=== PATIENT | male | born 1945 | race Caucasian/White ===

== ENCOUNTER 2018-03-20 09:22 | Observation (INO) | payer BC, OTHER ==
[2018-03-20 10:28] VITALS: BMI 28.4
[2018-03-20] MEDS: NA CHLORIDE 0.9% 1,000 ML IV SCH ×2 (11:30→20:19)
[2018-03-20 11:32] LABS: Potassium 4.1 mEq/L (3.6-5.0)
[2018-03-20 11:36] LABS: Albumin 4.5 g/dL (3.2-5.5); Protein, Total 7.7 g/dL (6.0-8.3)
--- NOTE | 2018-03-21 04:01 | CON ---
Date of Consultation: 03/20/2018 Consulting Physician: Dr. Gracia. Reason For Consultation: Elevated BUN and creatinine, fluid management, hypertension. History Of Present Illness: This is a pleasant 72-year-old gentleman with significant past medical h istory of hypertension, for the last 20 years, hyperlipidemia. The patient was in his regular state of health. According to the patient, the patient is known to have chronic kidney disease. Creatinin e last year around 2. The patient intentionally start losing weight the last few months lost almost 20 pounds. The patient repeated lab with Dr. Lozano show creatinine 2.5 with decreased GFR for that re ason, send for direct admission. Reviewing the record for the patient, the patient apparently being on JUAN inhibitor. The patient denied taking any nonsteroidal. No recent exposure to IV contrast. N o antibiotic. The patient has hesitancy but denies any nocturia, deny any leg swelling. Past Medical History: Include: 1.Hypertension. 2.Chronic kidney disease, stage 3B, baseline creatinine of 2. 3.Hyperlipidemia. Allergies: NO KNOWN DRUG ALLERGIES. Social History: Denied alcohol. Denied drug abuse. Family History: Positive for hypertension. Surgical History: Noncontributory. Review of Systems: Head and Neck: No red eye. No ear pain. GI: Decreased intake. : No polyuria. No dysuria. No hematuria. Has hesitancy. Dental Floss Packer: Not applicable. Respiratory: No shortness of breath. Cardiovascular: No chest pain. Neuro: No weakness. Musculoskeletal: Generalized fatigue. Endocrine: No polydipsia. Skin: No rash. Physical Examination: Vital Signs: When I saw the patient, blood pressure of 138/88, pulse of 88. Chest: Clear to auscultation. Heart: S1, S2. Regular. Abdomen: Soft, nontender. Extremities: No edema. Vascular exam: No carotid bruit. No renal bruit. The patient is obese. Neuro: Alert and oriented x3. No focal. No tremor. Laboratory Data: Has a lab data that was brought with the patient, creatinine 2.5, GFR down to 24. Assessment And Plan: 1.Acute kidney injury secondary to prerenal, superimposed with JUAN inhibitor use. 2.I will hold UJAN inhibitor, start the patient on aggressive hydration, and we will send for the wor kup. Given the chronicity of the disease, I am going to go ahead and send for PTH and vitamin D and renal ultrasound to stage chronic kidney disease, and we will follow up. 3.Hypertension. On the presence of acute kidney injury, we will hold on the JUAN inhibitor for the t pema being. Case discussed with the patient, verbalized understanding. PAMELA Voice ID: [id number] Report ID: [id number]
[2018-03-21] MEDS: NA CHLORIDE 0.9% 1,000 ML IV SCH (04:06)
[2018-03-21 06:53] LABS: Potassium 3.8 mEq/L (3.6-5.0)
[2018-03-21 08:58] VITALS: O2SAT 99
[2018-03-21 09:54] VITALS: BP 115/78; TEMP 97
--- NOTE | 2018-03-21 21:04 | HP ---
Date of Admission: 03/20/2018 Chief Complaint: Abnormal renal function. History Of Present Illness: A 72-year-old male, decided to lose weight and lost over 15-20 pounds an d was brought for regular visit when he was found to have low blood pressure. The patient claims jackelyn t he deliberately tried to eat less, drink less fluids to lose weight. The patient was asked not to take whole dose of amlodipine. Blood work was done. This showed elevation of creatinine to 2.5. He came on the following day. His blood pressure was 100 systolic and at this point in view of worseni ng of his kidney function the patient was admitted for administration of IV fluids and monitoring of renal function. Past Medical History: Positive for hypertension, gastroesophageal reflux. Family History: present. Personal History: No known allergies. Home Medicines: Benicar with hydrochlorothiazide, metoprolol, amlodipine. Review of Systems: No chest pain or shortness of breath. Physical Examination: General: Revealed a 72-year-old male. Vital signs: Blood pressure in the office was 100/70, temperature normal. HEENT: Negative. Neck: Supple. JVD negative. Chest: Clear. Heart: Regular. Abdomen: Soft. Extremities: No edema. Laboratory Data: In the office, creatinine was 2.5. Repeat creatinine 2.1. Today the creatinine is 1.8. Assessment: 1.Probable renal hypoperfusion causing worsening of kidney function. 2.Hypertension. Plan: The patient will be discharged on no blood pressure medication. He will be checked in the off ice tomorrow and his blood pressure medications will be rearranged. GAYATRI/REUBEN Voice ID: [id number]
== END 2018-03-21 10:38 | disposition home or self-care (01) ==
LOC: 4TH 10:05
PROVIDERS: ADMIT Internal Medicine; ATTEND Internal Medicine
DX: N17.9 Acute kidney failure, unspecified (principal); I12.9 Hypertensive chronic kidney disease with stage 1 through stage 4 chronic kidney disease, or unspecified chronic kidney disease; N18.3 Chronic kidney disease, stage 3 (moderate); E86.0 Dehydration; K21.9 Gastro-esophageal reflux disease without esophagitis
CPT/HCPCS: 36415; 80048; 80053; G0378; J7030

== ENCOUNTER 2020-08-19 17:32 | Inpatient (IN) | payer BC, OTHER ==
[2020-08-19] MEDS ORDERED: METOPROLOL TARTRATE 5 MG/5 ML INJ IV ONE ×2 (19:41→23:13)
[2020-08-19] MEDS ORDERED: NA CHLORIDE 0.9% 1,000 ML ONE ×2 (19:41→21:08)
[2020-08-19 19:46] LABS: Absolute Lymphocytes (CBC) 0.4 K/uL (0.7-4.9); Basophils % 0.1 % (0-1.3); Hematocrit 40.9 % (39.6-49.0); Lymphocytes % 3.8 % (15.3-44.8); MPV 9.9 fL (7.6-11.3); RBC Red Blood Cell Count 4.59 M/uL (4.33-5.43)
[2020-08-19 19:48] LABS: Protime INR 2.05
[2020-08-19 20:06] LABS: Albumin 3.2 g/dL (3.4-5.0); Bilirubin Direct 0.9 mg/dL (0-0.2); Bilirubin Total 2.1 mg/dL (0.2-1.0); Magnesium 1.7 mg/dL (1.8-2.4); Potassium 3.1 mmol/L (3.5-5.1); Protein, Total 7.6 g/dL (6.4-8.2); Troponin (Emerg Dept Use Only) 0.05 ng/mL (0.0-0.045)
--- NOTE | 2020-08-19 20:53 | EDPHYS ---
Physician Documentation [facility] Name: Alejandro Ackerman Age: 75 yrs Sex: Male : 1945 Arrival Date: 08/19/2020 Time: 17:33 Bed 30 Private MD: Yovani Mann R ED Physician Dontae Baker HPI: 08/19 20:41 This 75 yrs old Male presents to ER via Ambulatory with complaints of COVID+, jr8 Breathing Difficulty. 20:41 The patient has shortness of breath at rest. Onset: The symptoms/episode began/occurred jr8 gradually, 1 week(s) ago. Duration: The symptoms are continuous, and are steadily getting worse. The patient's shortness of breath is aggravated by light activity, walking. Associated signs and symptoms: Pertinent positives: fever. Severity of symptoms: At their worst the symptoms were moderate in the emergency department the symptoms are unchanged. The patient has not experienced similar symptoms in the past. The patient has been recently seen by a physician: the patient's primary care provider. Historical: - Allergies: 17:50 No Known Allergies; ll1 - PMHx: 17:50 Hypertension; A fib; ll1 - PSHx: 17:50 Left leg FX, ankle dislocation; back surgery; arm surgery-muscle repair; ll1 - Immunization history:: Flu vaccine is not up to date. - Social history:: Smoking status: Patient denies any tobacco usage or history of. ROS: 20:41 Eyes: Negative for injury, pain, redness, and discharge, ENT: Negative for injury, jr8 pain, and discharge, Neck: Negative for injury, pain, and swelling, Cardiovascular: Negative for chest pain, palpitations, and edema, Abdomen/GI: Negative for abdominal pain, nausea, vomiting, diarrhea, and constipation, Back: Negative for injury and pain, MS/Extremity: Negative for injury and deformity, Skin: Negative for injury, rash, and discoloration, Neuro: Negative for headache, weakness, numbness, tingling, and seizure. 20:41 Constitutional: Positive for fever, malaise. 20:41 Respiratory: Positive for dyspnea on exertion, shortness of breath. Exam: 20:41 Eyes: Pupils equal round and reactive to light, extra-ocular motions intact. Lids and jr8 lashes normal. Conjunctiva and sclera are non-icteric and not injected. Cornea within normal limits. Periorbital areas with no swelling, redness, or edema. ENT: Nares patent. No nasal discharge, no septal abnormalities noted. Tympanic membranes are normal and external auditory canals are clear. Oropharynx with no redness, swelling, or masses, exudates, or evidence of obstruction, uvula midline. Mucous membranes moist. Neck: Trachea midline, no thyromegaly or masses palpated, and no cervical lymphadenopathy. Supple, full range of motion without nuchal rigidity, or vertebral point tenderness. No Meningismus. Abdomen/GI: Soft, non-tender, with normal bowel sounds. No distension or tympany. No guarding or rebound. No evidence of tenderness throughout. Back: No spinal tenderness. No costovertebral tenderness. Full range of motion. Skin: Warm, dry with normal turgor. Normal color with no rashes, no lesions, and no evidence of cellulitis. MS/ Extremity: Pulses equal, no cyanosis. Neurovascular intact. Full, normal range of motion. Neuro: Awake and alert, GCS 15, oriented to person, place, time, and situation. Cranial nerves II-XII grossly intact. Motor strength 5/5 in all extremities. Sensory grossly intact. Cerebellar exam normal. Normal gait. 20:41 Cardiovascular: Rate: tachycardic, Rhythm: irregularly irregular, Pulses: Pulses are 2+ in right radial artery and left radial artery. Heart sounds: normal, normal S1and S2, Edema: is not appreciated, JVD: is not appreciated. 20:41 Respiratory: mild respiratory distress is noted, Respirations: tachypnea, Breath sounds: are clear throughout. Vital Signs: 17:46 BP 131 / 85; Pulse 71; Resp 20; Temp 97.8; Pulse Ox 96% on R/A; Weight 90.72 kg; Height ll1 5 ft. 10 in. (177.80 cm); Pain 10/10; 21:42 BP 110 / 100; Pulse 119; Resp 30; Pulse Ox 92% on NC; ea 22:59 BP 132 / 94; Pulse 105; Resp 30; Pulse Ox 94% ; ea 17:46 Body Mass Index 28.70 (90.72 kg, 177.80 cm) 1 MDM: 18:28 Patient medically screened. jr8 20:41 Data reviewed: vital signs, nurses notes, lab test result(s), EKG, radiologic studies, [facility] plain films. Data interpreted: Pulse oximetry: on room air is 96 %. Interpretation: normal. Counseling: I had a detailed discussion with the patient and/or guardian regarding: the historical points, exam findings, and any diagnostic results supporting the discharge/admit diagnosis, lab results, radiology results, the need for further work-up and treatment in the hospital. 08/19 18:29 Order name: Basic Metabolic Panel; Complete Time: 20:23 8 08/19 18:29 Order name: CBC with Diff; Complete Time: 21:57 jr8 08/19 18:29 Order name: LFT's; Complete Time: 20:23 [facility] 08/19 18:29 Order name: Magnesium; Complete Time: 20:23 8 08/19 18:29 Order name: NT PRO-BNP; Complete Time: 20:23 8 08/19 18:29 Order name: PT-INR; Complete Time: 20:23 [facility] 08/19 18:29 Order name: Troponin (emerg Dept Use Only); Complete Time: 20:23 [facility] 08/19 18:29 Order name: CRP; Complete Time: 20:23 [facility] 08/19 18:30 Order name: Fibrinogen; Complete Time: 22:47 [facility] 08/19 19:22 Order name: DD ds4 08/19 19:26 Order name: Blood Culture Adult (2) 08/19 19:26 Order name: Lactate; Complete Time: 20:38 08/19 19:26 Order name: Procalcitonin; Complete Time: 20:38 08/19 19:27 Order name: Blood Culture [facility] 08/19 18:29 Order name: XRAY Chest (1 view); Complete Time: 00:29 [facility] 08/19 19:55 Order name: CBC Smear Scan; Complete Time: 21:57 [facility] 08/19 23:33 Order name: Lactate Sepsis 2 HR Follow-up; Complete Time: 23:39 [facility] 08/20 05:17 Order name: CBC with Automated Diff [facility] 08/20 05:41 Order name: Renal Panel [facility] 08/20 05:41 Order name: Uric Acid [facility] 08/20 05:41 Order name: Creatine Phosphokinase [facility] 08/20 05:41 Order name: C-Reactive Protein [facility] 08/20 05:41 Order name: T4 Free [facility] 08/20 05:41 Order name: Magnesium [facility] 08/20 05:41 Order name: Thyroid Stimulating Hormone [facility] 08/20 06:02 Order name: PTH Intact [facility] 08/19 18:29 Order name: EKG; Complete Time: 18:30 8 08/19 18:29 Order name: Cardiac monitoring; Complete Time: 19:23 8 08/19 18:29 Order name: EKG - Nurse/Tech; Complete Time: 19:23 8 08/19 18:29 Order name: IV Saline Lock; Complete Time: 19:23 8 08/19 18:29 Order name: Labs collected and sent; Complete Time: 19:23 8 08/19 18:29 Order name: O2 Per Protocol; Complete Time: 19:23 8 08/19 18:29 Order name: O2 Sat Monitoring; Complete Time: 19:23 Administered Medications: 19:50 Drug: Metoprolol 5 mg Route: IVP; Site: left antecubital; ll2 19:51 Drug: NS 0.9% 1000 ml Route: IV; Rate: 1000 ml; Site: left antecubital; ll2 21:15 Follow up: Response: No adverse reaction; IV Status: Completed infusion ll2 19:55 Drug: Metoprolol 5 mg Route: IVP; Site: right antecubital; ll2 20:00 Drug: Metoprolol 5 mg Route: IVP; Site: right antecubital; ll2 21:15 Follow up: Response: No adverse reaction ll2 20:52 CANCELLED (Physician Discretion): Lovenox 1 mg/kg Sub-Q once 8 21:03 Drug: Decadron - Dexamethasone 10 mg Route: IVP; Site: right antecubital; ll2 21:12 Follow up: Response: No adverse reaction ll2 21:03 Drug: Potassium Chloride 40 mEq Route: PO; ll2 21:12 Follow up: Response: No adverse reaction ll2 21:04 Drug: NS 0.9% 1000 ml Route: IV; Rate: 100 ml/hr; Site: right antecubital; ll2 21:15 Follow up: Response: No adverse reaction; IV Status: Completed infusion ll2 21:33 Drug: Metoprolol TARTRATE (Lopressor) 50 mg Route: PO; ll2 22:57 Follow up: Response: No adverse reaction ll2 21:34 Drug: Rocephin 1 grams Route: IV; Rate: calculated rate; Site: right antecubital; ll2 22:57 Follow up: Response: No adverse reaction rv 22:57 Follow up: IV Status: Completed infusion rv 22:57 Follow up: Response: No adverse reaction; IV Status: Completed infusion ll2 21:34 Drug: Zithromax 500 mg Route: IVPB; Infused Over: 1 hrs; Site: right antecubital; ll2 22:58 Follow up: Response: No adverse reaction; IV Status: Completed infusion ll2 23:10 Drug: Metoprolol 5 mg Route: IVP; Site: right antecubital; ll2 23:11 Follow up: Response: No adverse reaction ll2 Disposition: 08/20 09:04 Co-signature as Attending Physician, Dontae Baker MD I agree with the assessment and kdr plan of care. Disposition: 08/19/20 20:52 Hospitalization ordered by Trey Calles for Inpatient Admission. Preliminary diagnosis are SARS-associated coronavirus as the cause of diseases classified elsewhere, Acute kidney failure. - Bed requested for Intensive Care Unit. - Status is Inpatient Admission. aa5 - Condition is Fair. - Problem is new. - Symptoms are unchanged. Signatures: Dispatcher [employer] EDMS Dontae Baker MD MD [facility] Sonia Dove RN RN aa5 Dontae Cooper PA PA jr8 Radha Bateman RN RN Tracie Bermeo RN RN ll2 Lynnette Ramírez RN RN ll1 Rashawn Corey RN rv Corrections: (The following items were deleted from the chart) 08/19 20:52 20:39 Lovenox 1 mg/kg Sub-Q once ordered. jr8 jr8 22:05 20:52 Hospitalization Ordered by Trey Calles DO for Inpatient Admission. Preliminary cg diagnosis is SARS-associated coronavirus as the cause of diseases classified elsewhere; Acute kidney failure. Bed requested for Telemetry/MedSurg (Inpatient). Status is Inpatient Admission. Condition is Fair. Problem is new. Symptoms are unchanged. jr8 08/20 05:59 08/19 22:05 08/19/2020 20:52 Hospitalization Ordered by Trey Calles DO for Inpatient cg Admission. Preliminary diagnosis is SARS-associated coronavirus as the cause of diseases classified elsewhere; Acute kidney failure. Bed requested for [facility] ER HOLD. Status is Inpatient Admission. Condition is Fair. Problem is new. Symptoms are unchanged. 08/20 07:45 05:59 08/19/2020 20:52 Hospitalization Ordered by Trey Calles DO for Inpatient aa5 Admission. Preliminary diagnosis is SARS-associated coronavirus as the cause of diseases classified elsewhere; Acute kidney failure. Bed requested for Intensive Care Unit. Status is Inpatient Admission. Condition is Fair. Problem is new. Symptoms are unchanged. cg
--- NOTE | 2020-08-19 20:53 | ER ---
Nurse's Notes [facility] Name: Alejandro Ackerman Age: 75 yrs Sex: Male : 1945 Arrival Date: 08/19/2020 Time: 17:33 Bed 30 Private MD: Yovani Mann R Diagnosis: SARS-associated coronavirus as the cause of diseases classified elsewhere;Acute kidney failure Presentation: 08/19 17:46 Chief complaint:. iw 17:46 Chief complaint: Patient states: SOB, fatigue, no appetite for 5 days. Fever 102.6 at ll1 home. No N/V/D. Coronavirus screen: Client denies travel out of the [place] in the last 14 days. congestion, cough unrelated to allergies, difficulty breathing, fatigue, fever, headache, Client presents with at least one sign or symptom that may indicate coronavirus-19. Standard/surgical mask placed on the client. Client reports previous positive COVID test result. Ebola Screen: Patient denies travel to an Ebola-affected area in the 21 days before illness onset. Initial Sepsis Screen: Does the patient meet any 2 criteria? No. Patient's initial sepsis screen is negative. Risk Assessment: Do you want to hurt yourself or someone else? Patient reports no desire to harm self or others. Onset of symptoms was August 14, 2020. 17:46 Method Of Arrival: Ambulatory [facility] 17:46 Acuity: VIVIENNE 3 1 08/20 00:54 Initial Sepsis Screen: Does the patient have a suspected source of infection? Yes: rv Productive cough/pneumonia. Triage Assessment: 00:55 General: Appears uncomfortable, Behavior is calm, cooperative. Respiratory: Reports rv shortness of breath on exertion Onset: The symptoms/episode began/occurred gradually, the patient has moderate shortness of breath. Historical: - Allergies: 08/19 17:50 No Known Allergies; ll1 - PMHx: 17:50 Hypertension; A fib; ll1 - PSHx: 17:50 Left leg FX, ankle dislocation; back surgery; arm surgery-muscle repair; ll1 - Immunization history:: Flu vaccine is not up to date. - Social history:: Smoking status: Patient denies any tobacco usage or history of. Screenin:00 Abuse screen: Denies threats or abuse. Denies injuries from another. rv 22:00 Nutritional screening: No deficits noted. Tuberculosis screening: No symptoms or risk rv factors identified. Fall Risk None identified. Assessment: 21:43 Reassessment: Respiratory at bedside with high flow O2. ea 22:00 Respiratory: Airway is patent Respiratory effort is labored, Breath sounds are coarse rv bilaterally. 22:00 Pain: Denies pain. Cardiovascular: Rhythm is atrial fibrillation with rapid ventricular rv response. GI: No signs and/or symptoms were reported involving the gastrointestinal system. Derm: Skin is intact. 22:34 Reassessment: aided pt to and from bedside comode, pt became very winded and sob, o2 ll2 sats improved when returned to bed. 23:09 Reassessment: recollect of Lactic acid collected and sent to lab. ll2 Vital Signs: 17:46 BP 131 / 85; Pulse 71; Resp 20; Temp 97.8; Pulse Ox 96% on R/A; Weight 90.72 kg; Height ll1 5 ft. 10 in. (177.80 cm); Pain 10/10; 21:42 BP 110 / 100; Pulse 119; Resp 30; Pulse Ox 92% on NC; ea 22:59 BP 132 / 94; Pulse 105; Resp 30; Pulse Ox 94% ; ea 17:46 Body Mass Index 28.70 (90.72 kg, 177.80 cm) ll1 ED Course: 17:33 Patient arrived in ED. mr 17:34 Yovani Mann MD is Private Physician. mr 17:48 Triage completed. ll1 17:50 Arm band placed on. ll1 18:28 [facility] jr8 18:28 Dontae Baker MD is Attending Physician. jr8 19:09 XRAY Chest (1 view) In Process Unspecified. EDMS 19:20 Inserted saline lock: 20 gauge in right antecubital area, using aseptic technique. ds4 Blood collected. 19:25 Rashawn Corey, CHRISTINA is Primary Nurse. rv 20:48 Trey Calles DO is Hospitalizing Provider. jr8 22:00 Patient has correct armband on for positive identification. rv 22:00 dispatcher chief oil on. Pulse ox on. NIBP on. rv 08/20 00:55 No provider procedures requiring assistance completed. IV is patent, with fluids rv infusing freely, with good blood return, Patient admitted, IV remains in place. Administered Medications: 08/19 19:50 Drug: Metoprolol 5 mg Route: IVP; Site: left antecubital; ll2 19:51 Drug: NS 0.9% 1000 ml Route: IV; Rate: 1000 ml; Site: left antecubital; ll2 21:15 Follow up: Response: No adverse reaction; IV Status: Completed infusion ll2 19:55 Drug: Metoprolol 5 mg Route: IVP; Site: right antecubital; ll2 20:00 Drug: Metoprolol 5 mg Route: IVP; Site: right antecubital; ll2 21:15 Follow up: Response: No adverse reaction ll2 20:52 CANCELLED (Physician Discretion): Lovenox 1 mg/kg Sub-Q once jr8 21:03 Drug: Decadron - Dexamethasone 10 mg Route: IVP; Site: right antecubital; ll2 21:12 Follow up: Response: No adverse reaction ll2 21:03 Drug: Potassium Chloride 40 mEq Route: PO; ll2 21:12 Follow up: Response: No adverse reaction ll2 21:04 Drug: NS 0.9% 1000 ml Route: IV; Rate: 100 ml/hr; Site: right antecubital; ll2 21:15 Follow up: Response: No adverse reaction; IV Status: Completed infusion ll2 21:33 Drug: Metoprolol TARTRATE (Lopressor) 50 mg Route: PO; ll2 22:57 Follow up: Response: No adverse reaction ll2 21:34 Drug: Rocephin 1 grams Route: IV; Rate: calculated rate; Site: right antecubital; ll2 22:57 Follow up: Response: No adverse reaction rv 22:57 Follow up: IV Status: Completed infusion rv 22:57 Follow up: Response: No adverse reaction; IV Status: Completed infusion ll2 21:34 Drug: Zithromax 500 mg Route: IVPB; Infused Over: 1 hrs; Site: right antecubital; ll2 22:58 Follow up: Response: No adverse reaction; IV Status: Completed infusion ll2 23:10 Drug: Metoprolol 5 mg Route: IVP; Site: right antecubital; ll2 23:11 Follow up: Response: No adverse reaction ll2 Outcome: 20:52 Decision to Hospitalize by Provider. jr8 08/20 00:55 Admitted to ER Hold. Please see [facility] for further documentation. rv Condition: good Instructed on the need for admit. 07:45 Patient left the ED. aa5 Signatures: Dispatcher [employer] PRATEEKLady MeléndezGrecia, RN RN Sonia Beckwiht RN RN aa5 Dontae Cooper PA PA jr8 Asher Cortés 4 Vero Caceres RN Rashawn Og ea RN RN Tracie Flores, RN RN ll2 Lynnette Ramírez RN RN ll1
[2020-08-19] MEDS ORDERED: dexAMETHasone 4 MG/ML VIAL ONE (21:07)
[2020-08-19] MEDS ORDERED: POTASSIUM CL SA 10 MEQ TAB PO ONE (21:08)
[2020-08-19] MEDS ORDERED: AZITHROMYCIN 500 MG INJ IVPB ONE (21:23)
[2020-08-19] MEDS ORDERED: NA CHLORIDE 0.9% 250 ML ONE (21:23)
[2020-08-19] MEDS ORDERED: METOPROLOL TAR 50 MG TAB ONE (21:23)
[2020-08-19] MEDS ORDERED: CEFTRIAXONE/SWI 1gm 1 GM/10 ML SYR ONE (21:23)
[2020-08-19 21:37] LABS: Blood Morphology Comment NOT SEEN (NOT SEEN); Platelet Estimate ADEQ; White Blood Cell Scan OK (OK)
--- NOTE | 2020-08-19 22:02 | P.HP ---
Certification for Inpatient Patient admitted to: Inpatient With expected LOS: >2 Midnights Patient will require the following post-hospital care: None Practitioner: I am a practitioner with admitting privileges, knowledge of patient current condition, hospital course, and medical plan of care. Services: Services provided to patient in accordance with Admission requirements found in Title 42 Section 412.3 of the Code of Federal Regulations <Alvaro Al - Last Filed: 08/19/20 21:55> Patient admitted to: Inpatient <Trey Calles - Last Filed: 08/20/20 09:31> Patient History Date of Service: 08/19/20 Primary Care Provider: Dr. Mann, Dr. Jones Reason for admission: Acute respiratory failure, COVID History of Present Illness: 75-year-old male with history of atrial fibrillation on chronic anticoagulation therapy and hypertension presents emergency department for shortness of breath. Patient reports he is diagnosed with COVID on Sunday after experiencing shortness of breath since the end of last week. Patient reports he has been on Augmentin since Sunday. Upon presentation to the emergency department patient was tachycardic around 160 in atrial fibrillation with rapid ventricular response. Patient also tachypneic with around 44 respirations per min and mildly hypoxic around 89% on room air. Chest x-ray suspicious for bilateral pleural infiltrate. ED provider wishes to admit patient for further evaluation and management. When I saw the patient in the emergency department he was awake, alert, oriented x3, patient was tachypneic around 30 respirations per min and on room air at time evaluation around 89%. Patient a for about this time. Patient is full code and does wish to be intubated if needed. Patient be admitted for further evaluation and management. - Past Medical/Surgical History Diabetic: No -: Atrial fibrillation on chronic anticoagulation therapy -: Hypertension -: Cholecystectomy -: Left leg fracture -: Back surgery Psychosocial/ Personal History: Patient lives at home with his and is currently retired - Family History Father -: Heart disease - Social History Smoking Status: Never smoker Alcohol use: No CD- Drugs: No Caffeine use: Yes Place of Residence: Home <Alvaro Al - Last Filed: 08/19/20 21:55> Date of Service: 08/20/20 Home medications list reviewed: No - Past Medical/Surgical History -: Chronic renal disease stage III <Trey Calles Last Filed: 08/20/20 09:31> Allergies No Known Allergies Allergy (Verified 03/20/18 10:50) Home Medications: Cyclobenzaprine [Flexeril*] 10 mg PO DAILY 03/20/18 Omeprazole 20 mg PO DAILY 03/20/18 Review of Systems 10-point ROS is otherwise unremarkable General: Weakness, Malaise Respiratory: Cough, Shortness of Breath, Pleuritic Pain <Alvaro Al - Last Filed: 08/19/20 21:55> Physical Examination - Physical Exam General: Alert, In no apparent distress, Oriented x3 HEENT: Atraumatic, Normocephalic Neck: Supple Respiratory: Diminished (Bilaterally), Other (Shallow inspirations and tachypneic noted) Cardiovascular: No edema, Irregular heart rate/rhythm (AFib RVR rate 115) Capillary refill: <2 Seconds Gastrointestinal: Normal bowel sounds, No tenderness, No rebound, No guarding Musculoskeletal: No contractures, No erythema, No tenderness Integumentary: No tenderness/swelling, No erythema, No warmth Neurological: Normal speech, Normal strength at 5/5 x4 extr, Normal tone, Sensation intact - Studies Laboratory Data (last 24 hrs) 08/19/20 19:20: PT 23.9 H, INR 2.05 08/19/20 19:20: WBC 10.1, Hgb 14.5, Hct 40.9, Plt Count 167 08/19/20 19:20: Sodium 134 L, Potassium 3.1 L, BUN 24 H, Creatinine 2.25 H, Glucose 125 H, Magnesium 1.7 L, Total Bilirubin 2.1 H, AST 45 H, ALT 33, Alkaline Phosphatase 126 H <Alvaro Al - Last Filed: 08/19/20 21:55> - Studies Laboratory Data (last 24 hrs) 08/19/20 19:20: PT 23.9 H, INR 2.05 08/19/20 19:20: WBC 10.1, Hgb 14.5, Hct 40.9, Plt Count 167 08/19/20 19:20: Sodium 134 L, Potassium 3.1 L, BUN 24 H, Creatinine 2.25 H, Glucose 125 H, Magnesium 1.7 L, Total Bilirubin 2.1 H, AST 45 H, ALT 33, Alkaline Phosphatase 126 H <Trey Calles - Last Filed: 08/20/20 09:31> Assessment and Plan - Plan Assessment Acute respiratory failure with hypoxia and tachypnea secondary to COVID pneumonia Atrial fibrillation with rapid ventricular response on chronic anticoagulation therapy Acute kidney injury Hypertension Plan Acute respiratory failure with hypoxia and tachypnea secondary to COVID pneumonia: Pulmonology consult in place, continue with IV steroids, supplements, oxygen therapy. Respiratory therapy consult in place to wean oxygen. Daily room air saturations and room air saturations for home oxygen. Continue with IV antibiotics this time as pro calcitonin is elevated. Repeat daily CRP levels. Anticipate clinical improvement next 2-4 days. Continue patient's Xarelto for DVT prophylaxis. Atrial fibrillation with rapid ventricular response on chronic anticoagulation therapy: Continue Xarelto and metoprolol at this time. Patient did receive multiple doses of IV metoprolol in the emergency department to control rate which was initially around 150. Patient recently taken off of diltiazem and transition to metoprolol. Will discuss further with cardiology. Cardiology consult in place. Echocardiogram ordered. Acute kidney injury: Nephrology consult in place, continue gentle hydration at this time as patient does appear dry. Renal ultrasound, CPK, uric acid levels ordered. Hypertension: Continue metoprolol 50 mg p.o. b.i.d.. Discharge Plan: Home Plan to discharge in: Greater than 2 days - Advance Directives Does patient have a Living Will: No Does patient have a Durable POA for Healthcare: No - Code Status/Comfort Care Code Status Assessed: Yes (Patient is full code) Critical Care: No Time Spent Managing Pts Care (In Minutes): 55 <Alvaro Al - Last Filed: 08/19/20 21:55> - Plan Case reviewed in detail with nurse practitioner. Agree with current plan of care. Will adjust medication. Will review other lab. Will discuss case further with pulmonology, cardiology and nephrology. Please see progress note for details. <Trey Calles - Last Filed: 08/20/20 09:31>
[2020-08-19] MEDS: NA CHLORIDE 0.9% 1,000 ML IV SCH (23:01)
[2020-08-19] MEDS ORDERED: ACETAMINOPHEN 500 MG TAB PO PRN (23:01)
[2020-08-19] MEDS ORDERED: ONDANSETRON 4 MG/2 ML VIAL IV PRN (23:01)
--- NOTE | 2020-08-20 00:20 | RAD REPORT ---
EXAM DESCRIPTION: RAD - Chest Single View - 08/19/2020 10:23 pm CLINICAL HISTORY: DYSPNEA Chest pain. COMPARISON: Chest Pa And Lat (2 Views) dated 08/18/2020; Chest Pa And Lat (2 Views) dated 03/18/2018 FINDINGS: Portable technique limits examination quality. Interstitial lung markings are prominent bilaterally raising suspicion for interstitial pneumonitis/ bronchitis. This appears stable from the comparative study. The heart is moderately enlarged in size. No displaced fractures.
[2020-08-20] MEDS ORDERED: METOPROLOL TARTRATE 5 MG/5 ML INJ IV ONE ×2 (00:52→02:19)
[2020-08-20] MEDS: METHYLPREDNISOLONE 40 MG INJ IV SCH ×3 (01:00→13:22)
[2020-08-20] MEDS ORDERED: METOPROLOL TARTRATE 5 MG/5 ML INJ IV STA ×5 (02:14→13:51)
[2020-08-20] MEDS ORDERED: METHYLPREDNISOLONE 40 MG INJ ONE (02:19)
[2020-08-20 05:16] LABS: Absolute Lymphocytes (CBC) 0.4 K/uL (0.7-4.9); Basophils % 0.4 % (0-1.3); Hematocrit 37.6 % (39.6-49.0); Lymphocytes % 3.9 % (15.3-44.8); MPV 9.9 fL (7.6-11.3); RBC Red Blood Cell Count 4.21 M/uL (4.33-5.43)
[2020-08-20 05:41] LABS: Albumin 2.8 g/dL (3.4-5.0); Magnesium 1.7 mg/dL (1.8-2.4); Phosphorus 2.6 mg/dL (2.5-4.9); Potassium 3.4 mmol/L (3.5-5.1); Thyroid Stimulating Hormone 0.616 uIU/mL (0.360-3.740); Uric Acid 7.3 mg/dL (3.5-7.2)
[2020-08-20] MEDS ORDERED: MAGNESIUM SULFATE 1 gm IVPB 1 GM/100 ML BAG IV ONE ×2 (06:20→06:38)
[2020-08-20] MEDS ORDERED: POTASSIUM CL SA 10 MEQ TAB PO ONE ×2 (06:22→06:38)
--- NOTE | 2020-08-20 07:46 | RAD REPORT ---
EXAM DESCRIPTION: US - Renal Ultrasound-Complete - 08/20/2020 7:15 am CLINICAL HISTORY: GEORGE COMPARISON: Renal Ultrasound-Complete dated 03/20/2018 FINDINGS: The right kidney measures 8.8 x 5.1 x 4.1 cm. The left kidney measures 11.1 x 4.7 x 4.9 c m. Right kidney measures smaller than the left but is not substantially different in measurement comp ared to 2018. Cortical thickness is normal. Increased renal parenchymal echogenicity is present consi stent with underlying medical renal disease. No hydronephrosis or suspicious renal mass. No focal bladder mass identified. No intraluminal stone or abnormality. Bladder wall appears thickene d for the amount of distention. This could be secondary to a urethral outlet obstruction or possibly cystitis. IMPRESSION: Underlying medical renal disease evident with no hydronephrosis or suspicious renal mass . Bladder wall thickening is evident without a focal mass. This could be secondary to a urethral restri ction or possibly from cystitis.
[2020-08-20] MEDS: ASCORBIC ACID 500 MG TABLET PO SCH ×3 (08:31→20:20)
[2020-08-20] MEDS: NA CHLORIDE 0.9% 1,000 ML IV SCH (08:33)
[2020-08-20] MEDS: ZINC SULFATE 220 MG CAP PO SCH (08:34)
[2020-08-20] MEDS ORDERED: THIAMINE 200 MG/2 ML INJ IVP SCH (09:00)
[2020-08-20] MEDS: VITAMIN D 1000 UNIT TAB PO SCH (09:00)
[2020-08-20] MEDS ORDERED: METOPROLOL TAR 50 MG TAB PO SCH ×2 (09:00)
[2020-08-20] MEDS ORDERED: CEFTRIAXONE 1 GM/NS 50 ML 1 GM/50 ML BAG IV SCH (09:00)
[2020-08-20] MEDS ORDERED: GLUCAGON 1 MG/VIAL IM PRN (09:23)
[2020-08-20] MEDS ORDERED: D50W 25 GM/50 ML SYRINGE/VIAL IV PRN (09:23)
--- NOTE | 2020-08-20 09:24 | P.PN ---
Subjective Date of Service: 08/20/20 Primary Care Provider: Dr. Mann, Dr. Jones Chief Complaint: Acute respiratory failure, COVID Subjective: Other (Patient doing better. On BIPAP. present in the room.) Physical Examination - Vital Signs Temperature: 98 F Blood Pressure: 150/110 Pulse: 124 Respirations: 27 Pulse Ox (%): 98 - Physical Exam General: Alert, In no apparent distress, Cooperative HEENT: Atraumatic Neck: Supple Respiratory: Other (Patient on BiPAP) Cardiovascular: Irregular heart rate/rhythm (Atrial fibrillation rate around 110) Integumentary: No tenderness/swelling Neurological: Normal speech, Normal strength at 5/5 x4 extr, Normal tone, Normal affect - Studies Laboratory Data (last 24 hrs) 08/19/20 19:20: PT 23.9 H, INR 2.05 08/19/20 19:20: WBC 10.1, Hgb 14.5, Hct 40.9, Plt Count 167 08/19/20 19:20: Sodium 134 L, Potassium 3.1 L, BUN 24 H, Creatinine 2.25 H, Glucose 125 H, Magnesium 1.7 L, Total Bilirubin 2.1 H, AST 45 H, ALT 33, Alkaline Phosphatase 126 H Medications List Reviewed: Yes Assessment & Plan Discharge Plan: Home Plan to discharge in: 72 Hours Physician Review Additional Text: Assessment Acute respiratory failure with hypoxia and tachypnea secondary to COVID bilateral pneumonia Atrial fibrillation with rapid ventricular response on chronic anticoagulation therapy Acute on chronic renal disease stage III Hypertension Hyperglycemia suspect underlying diabetes mellitus type 2 Hypomagnesia Elevated Bilirubin and LFTs Plan Acute respiratory failure with hypoxia and tachypnea secondary to COVID bilateral pneumonia: Continue oxygen. Patient currently on BiPAP. Will try to wean down to nasal cannula. Continue with IV steroids. Continue with supplementation. Will continue to monitor CRP and adjust medication accordingly. Patient on IV antibiotic therapy to cover for bacterial pneumonia. Pulmonology consulted. Await recommendations. Will discontinue Xarelto due to his chronic renal disease. Will change to Eliquis 5 mg 1 pill twice daily. Continue to monitor closely. Cardiology consulted to address his atrial fibrillation. Will increase metoprolol. Anticipate improvement over the next 2-3 days. Atrial fibrillation with rapid ventricular response on chronic anticoagulation therapy: Troponin slightly elevated likely related to above. Will discontinue Xarelto due to his chronic renal disease. Will change to Eliquis 5 mg 1 pill twice daily. Will increase metoprolol to 75 mg 1 pill twice daily for better rate control. Cardiology consulted to further evaluate. Patient previously on diltiazem but this was recently discontinued as an outpatient due to severe headaches. Will discuss further with cardiology. Echo ordered. Acute on chronic renal disease stage III: Nephrology consulted. Patient on IV fluids. Will monitor and adjust appropriately. Renal ultrasound ordered. Hypertension: Will increase metoprolol to 75 mg 1 pill twice daily. Patient previously on diltiazem. This was discontinued as an outpatient due to severe headaches. May need to further adjust medication. Hyperglycemia suspect underlying diabetes mellitus type 2: Will obtain A1c. Will monitor Accu-Cheks. Will provide sliding scale. Will monitor and replace. Elevated Bilirubin and LFTs: Likely related to above. Will obtain right upper quadrant abdominal ultrasound to further evaluate. Time Spent Managing Pts Care (In Minutes): 55
[2020-08-20] MEDS ORDERED: NA CHLORIDE 0.9% 1,000 ML IV SCH (09:29)
--- NOTE | 2020-08-20 10:42 | P.CNS ---
Date of Consult: 08/20/20 Reason for Consult: GEORGE Primary Care Provider: Dr. Mann, Dr. Jones Chief Complaint: Acute respiratory failure, COVID History of Present Illness: 75 Y/o man with PMhx of HTN , Afib on anticoagulation, CKD III Cr 1.7 in 2019 pt presented with SOB pt have URTI was on Augmentin, pt didn't improve on ABx and Pt decide to come to ER in ER pt was hypotensive with AFIB with RVR , Cr 2.2 on admission Physical exam general: AAOX3, in mild distress Neck; Supple, No elevated JVD hear: RRR, normal S1,2 no murmur or rub Chest: decrease air entry to the bases with mild rales Abdomen: Soft , Nt Extremities No edema or ulcer GEORGE on CKD III Cr improving will dc IVF renal dose meds US No hydro Low Bicarb possibly due to resp alkalosis will dc IVF Afib with RVR metoprolol prn cardiology on baord COVID 19 pneumonia cont current treatment Acure resp failure due to COVID Allergies No Known Allergies Allergy (Verified 03/20/18 10:50) Home Medications: Cyclobenzaprine [Flexeril*] 10 mg PO DAILY 03/20/18 Omeprazole 20 mg PO DAILY 03/20/18 - Past Medical/Surgical History Diabetic: No -: Atrial fibrillation on chronic anticoagulation therapy -: Hypertension -: Chronic renal disease stage III -: Cholecystectomy -: Left leg fracture -: Back surgery Psychosocial/ Personal History: Patient lives at home with his and is currently retired - Family History Father Medical History: Heart disease - Social History Alcohol use: No CD- Drugs: No Caffeine use: Yes Place of Residence: Home Physical Examination Temp Pulse Resp BP Pulse Ox 98 F 124 H 27 H 150/110 H 98 08/20/20 09:30 08/20/20 09:30 08/20/20 09:30 08/20/20 09:30 08/20/20 09:30 Laboratory Data (last 24 hrs) 08/19/20 19:20: PT 23.9 H, INR 2.05 08/19/20 19:20: WBC 10.1, Hgb 14.5, Hct 40.9, Plt Count 167 08/19/20 19:20: Sodium 134 L, Potassium 3.1 L, BUN 24 H, Creatinine 2.25 H, Glucose 125 H, Magnesium 1.7 L, Total Bilirubin 2.1 H, AST 45 H, ALT 33, Alkaline Phosphatase 126 H
--- NOTE | 2020-08-20 11:08 | P.CNS ---
Date of Consult: 08/20/20 Primary Care Provider: Dr. Mann, Dr. Jones Chief Complaint: Brandon virus pneumonia History of Present Illness: Patient is 75 years of age with a history of AFib and hypertension admitted with shortness of breath he was just recently diagnosed with brandon virus infection is been complaining of some shortness of breath. No prior history of pulmonary complaints he does not smoke this found to be tachycardic in rapid AFib currently still complaining of shortness of breath patient is on nasal cannula oxygen Allergies No Known Allergies Allergy (Verified 03/20/18 10:50) Home Medications: Cyclobenzaprine [Flexeril*] 10 mg PO DAILY 03/20/18 Omeprazole 20 mg PO DAILY 03/20/18 - Past Medical/Surgical History Diabetic: No -: Atrial fibrillation on chronic anticoagulation therapy -: Hypertension -: Chronic renal disease stage III -: Cholecystectomy -: Left leg fracture -: Back surgery Psychosocial/ Personal History: Patient lives at home with his and is currently retired - Family History Father Medical History: Heart disease - Social History Alcohol use: No CD- Drugs: No Caffeine use: Yes Place of Residence: Home Review of Systems 10-point ROS is otherwise unremarkable General: Weakness Respiratory: Shortness of Breath Physical Examination Temp Pulse Resp BP Pulse Ox 98 F 124 H 27 H 150/110 H 98 08/20/20 09:30 08/20/20 09:30 08/20/20 09:30 08/20/20 09:30 08/20/20 09:30 General: Alert, Oriented x3 HEENT: Atraumatic Neck: Supple Respiratory: Clear to auscultation bilaterally Cardiovascular: No edema, Irregular heart rate/rhythm Laboratory Data (last 24 hrs) 08/19/20 19:20: PT 23.9 H, INR 2.05 08/19/20 19:20: WBC 10.1, Hgb 14.5, Hct 40.9, Plt Count 167 08/19/20 19:20: Sodium 134 L, Potassium 3.1 L, BUN 24 H, Creatinine 2.25 H, Glucose 125 H, Magnesium 1.7 L, Total Bilirubin 2.1 H, AST 45 H, ALT 33, Alkaline Phosphatase 126 H - Problems (1) Coronavirus infection Current Visit: Yes Status: Acute Plan: Patient is 75 years of age recently diagnosed with brandon virus chest x-ray minimal interstitial changes he is currently on nasal cannula oxygen still complaining of shortness of breath Dc antibiotics [place] Medrol 40 mg IV Q 12 patient's blood pressure is elevated heart rate is also elevated abnormal renal function creatinine is 2.0 patient has baseline chronic renal failure history of AFib patient is already on Xarelto possible discharge tomorrow I have added low-dose spironolactone rate control with beta blockers/
[2020-08-20] MEDS: INSULIN -REGULAR HUMAN 50 UNIT/0.5 ML ML SQ SCH ×3 (11:30→20:22)
--- NOTE | 2020-08-20 11:39 | EKG ---
Test Date: 2020-08-19 Test Time: 19:23:05 [employer]: RV MEASUREMENT RESULTS: Intervals: Rate: 139 AR: QRSD: 84 QT: 322 QTc: 489 [place]: P: AR: QRS: -20 T: 64 INTERPRETIVE STATEMENTS: Atrial fibrillation with rapid ventricular response with premature ventricular or aberrantly conducted complexes Nonspecific ST abnormality, probably digitalis effect Abnormal ECG Compared to ECG 04/23/1997 14:16:00 Ventricular premature complex(es) now present ST (T wave) deviation now present Sinus rhythm no longer present Electronically Signed On 08-20-20 11:37:25 CDT by Thuan Jones
[2020-08-20] MEDS ORDERED: DIGOXIN 0.25 MG/ML AMP IV ONE (13:08)
[2020-08-20] MEDS: SPIRONOLACTONE 25 MG TABLET PO SCH ×2 (13:18→20:20)
--- NOTE | 2020-08-20 13:18 | RAD REPORT ---
EXAM DESCRIPTION: US - Liver Only - 08/20/2020 12:58 pm CLINICAL HISTORY: D47.3 COMPARISON: None FINDINGS: The liver has an increased echotexture. Hepatopetal flow. Two cysts are present. Largest m easures 2 centimeters. The spleen measures 13.4 centimeters. IMPRESSION: Increased hepatic echotexture consistent with fatty infiltration. Small hepatic cysts Mild splenomegaly
[2020-08-20] MEDS ORDERED: DIGOXIN 0.25 MG/ML AMP ONE (13:28)
[2020-08-20] MEDS: AMLODIPINE 5 MG TAB PO SCH (13:50)
[2020-08-20] MEDS: HYDRALAZINE HCL 20 MG/ML VIAL IV PRN (15:40)
[2020-08-20] MEDS ORDERED: LOSARTAN/HCTZ 50-12.5 PO SCH (16:00)
[2020-08-20] MEDS: LOSARTAN/HCTZ 50-12.5 PO SCH (16:00)
[2020-08-20] MEDS: LORazepam 2 MG/ML VIAL IV ONE ×2 (16:29→20:20)
[2020-08-20] MEDS: NITROGLYCERIN/D5W 50 MG/250 ML BTL IV PRN (16:34)
[2020-08-20] MEDS ORDERED: LORazepam 2 MG/ML VIAL ONE (16:36)
[2020-08-20] MEDS ORDERED: RIVAROXABAN 15 MG TABLET PO SCH (17:00)
[2020-08-20 18:48] LABS: Arterial Blood Carboxyhemoglob 1.2 % (0-1.5); Blood O2 Saturation 94.3 % (92-98.5)
[2020-08-20] MEDS ORDERED: MORPHINE 2 MG/ML SYR IV ONE (19:00)
[2020-08-20] MEDS ORDERED: FUROSEMIDE 40 MG/4 ML VIAL IV ONE (19:00)
--- NOTE | 2020-08-20 19:01 | RAD REPORT ---
EXAM DESCRIPTION: Lizette Single View08/20/2020 6:51 pm CLINICAL HISTORY: Respiratory distress COMPARISON: August 19, 2020 FINDINGS: Overall no significant change in the [id number] bilateral pulmonary opacities The heart is mildly enlarged
[2020-08-20] MEDS: HYDROCODONE/APAP 7.5/325 MG TAB PO PRN (20:18)
[2020-08-20] MEDS: APIXABAN 5 MG TABLET PO SCH (20:19)
[2020-08-20] MEDS: METOPROLOL TAR 50 MG TAB PO SCH (20:19)
[2020-08-20] MEDS: BENZONATATE 100 MG CAP PO PRN (20:20)
[2020-08-20] MEDS ORDERED: AZITHROMYCIN IV 500 MG in NA CHLORIDE 0.9% 250 ML IVPB SCH (21:00)
[2020-08-20] MEDS ORDERED: CEFTRIAXONE/SWI 1gm 1 GM/10 ML SYR IV SCH (21:00)
[2020-08-20] MEDS ORDERED: HALOPERIDOL LACT 5 MG/ML INJ IV ONE (22:22)
[2020-08-20 22:34] LABS: UR CREAT < 13.0 mg/dL (20-370); UR PROTEIN 16 mg/dL (<11.9)
[2020-08-21] MEDS ORDERED: HALOPERIDOL LACT 5 MG/ML INJ IV ONE (00:39)
[2020-08-21] MEDS ORDERED: HALOPERIDOL LACT 5 MG/ML INJ ONE (00:54)
[2020-08-21] MEDS: NITROGLYCERIN/D5W 50 MG/250 ML BTL IV PRN (02:58)
[2020-08-21 06:05] LABS: Absolute Lymphocytes (CBC) 0.3 K/uL (0.7-4.9); Basophils % 0.1 % (0-1.3); Hematocrit 34.9 % (39.6-49.0); Lymphocytes % 2.9 % (15.3-44.8); MPV 10.2 fL (7.6-11.3); RBC Red Blood Cell Count 3.98 M/uL (4.33-5.43)
[2020-08-21 06:48] LABS: Albumin 2.8 g/dL (3.4-5.0); Ferritin 2300.7 ng/mL (26-388); Magnesium 1.8 mg/dL (1.8-2.4); Phosphorus 2.8 mg/dL (2.5-4.9); Potassium 3.2 mmol/L (3.5-5.1)
[2020-08-21] MEDS: INSULIN -REGULAR HUMAN 50 UNIT/0.5 ML ML SQ SCH ×4 (07:30→19:59)
[2020-08-21] MEDS ORDERED: POTASSIUM CL SA 10 MEQ TAB PO ONE ×2 (08:00→20:00)
[2020-08-21] MEDS ORDERED: MAGNESIUM SULFATE 1 gm IVPB 1 GM/100 ML BAG IV ONE (08:00)
[2020-08-21] MEDS ORDERED: AMLODIPINE 5 MG TAB PO SCH (09:00)
[2020-08-21] MEDS: VITAMIN D 1000 UNIT TAB PO SCH (09:00)
[2020-08-21 09:14] LABS: Anisocytosis 1+; Blood Morphology Comment NOTED (NOT SEEN); Platelet Estimate ADEQ
[2020-08-21] MEDS ORDERED: WATER FOR INJ,STERILE 10 ML IM PRN (09:39)
[2020-08-21] MEDS ORDERED: ZIPRASIDONE MESYLA 20 MG/VIAL IM PRN (09:39)
[2020-08-21] MEDS: APIXABAN 5 MG TABLET PO SCH (09:51)
[2020-08-21] MEDS: THIAMINE HCL 100 MG TABLET PO SCH (09:51)
[2020-08-21] MEDS: ASCORBIC ACID 500 MG TABLET PO SCH ×3 (09:51→20:21)
[2020-08-21] MEDS: ZINC SULFATE 220 MG CAP PO SCH ×2 (09:52→09:57)
[2020-08-21] MEDS: AMLODIPINE 5 MG TAB PO SCH (09:53)
[2020-08-21] MEDS: METOPROLOL TAR 50 MG TAB PO SCH ×4 (09:53→21:00)
[2020-08-21] MEDS: SPIRONOLACTONE 25 MG TABLET PO SCH ×2 (09:53→20:20)
[2020-08-21] MEDS: METHYLPREDNISOLONE 40 MG INJ IV SCH (09:54)
[2020-08-21] MEDS: LOSARTAN/HCTZ 50-12.5 PO SCH (10:02)
[2020-08-21] MEDS ORDERED: ENOXAPARIN 100 MG/ML SYR SQ SCH (10:23)
[2020-08-21] MEDS ORDERED: AMIODARONE HCL 150 MG in D5W 100 ML IV STA (10:29)
--- NOTE | 2020-08-21 10:31 | P.PN ---
Subjective Date of Service: 08/21/20 Primary Care Provider: Dr. Mann, Dr. Jones Chief Complaint: Respiratory failure Patient's condition has worsened is become more tachypneic respiratory failure is currently on BiPAP confused agitated Review of Systems is unable to be obtained Physical Examination - Vital Signs Temperature: 98 F Blood Pressure: 145/86 Pulse: 121 Respirations: 35 Pulse Ox (%): 92 - Physical Exam General: Unresponsive Respiratory: Clear to auscultation bilaterally Cardiovascular: No edema, Normal S1 S2, Irregular heart rate/rhythm Gastrointestinal: Normal bowel sounds, Soft and benign - Studies Medications List Reviewed: Yes Assessment & Plan - Problems (Diagnosis) (1) Respiratory failure Current Visit: Yes Status: Acute Plan: Patient has not of respiratory failure he is on BiPAP fully anti coagulated with Lovenox Dc Eliquis Qualifiers: Chronicity: acute (2) Atrial fibrillation Current Visit: Yes Status: Acute Plan: The change him over to Lovenox start IV amiodarone (3) Hypertension Current Visit: Yes Status: Acute Plan: Dc the a Tridil drip continue with p.o. medications
[2020-08-21] MEDS ORDERED: NA CHLORIDE 0.9% 500 ML ONE (10:33)
[2020-08-21] MEDS ORDERED: METHYLPREDNISOLONE 40 MG INJ IV SCH (11:00)
--- NOTE | 2020-08-21 11:36 | CON ---
Date of Consultation: 08/20/[address] Calles on 08/19/2020, patient was seen on 08/20/2020. Reason For Consultation: Paroxysmal atrial fibrillation. History Of Present Illness: Mr. Ackerman is a 75-year-old white male, who came into the emergency room, complaining of COVID positive status with shortness of breath. He has had a history of left leg fra cture in the past, atrial fibrillation, as well as hypertension. He came in with shortness of breath at rest. Symptoms have been going on for approximately a week. His symptoms are exertional, did no t have any chest pain, did not have any syncope. Denied PND, orthopnea, or pedal edema. Has had pal pitations. He initially came in with pulse of 71, but then he went into rapid atrial fibrillation an d became more hypertensive and I was consulted. Past Medical History: As stated above. Allergies: NONE. Review of Systems: Negative. Social History: Negative. Family History: Noncontributory. Medications At Home: Include Flexeril and omeprazole. Physical Examination: Vital Signs: Blood pressure is 145/75. He was in atrial fibrillation at a rate of 126. He was ranjeet thing rapidly at about 40 times a minute. He was afebrile. O2 saturation on BiPAP and CPAP was 98%. His pO2 was 72, pCO2 was 26 with a pH of 7.41. HEENT: Negative. Neck: Supple. No bruit. Chest: Reveals crackles throughout. Cardiac: Revealed atrial fibrillation. Abdomen: Benign. Extremities: Revealed no clubbing, cyanosis, or edema. Diagnostic Data: His creatinine was 2.05. His white count was 11,000, hemoglobin was 13.1. D-dimer was 565. His glucose was 201, potassium was 3.9, magnesium was 1.7. His troponin was 0.05. His BN P was 8843. Procalcitonin was 2.06. His PTH was 199. Chest x-ray had [id number] bilateral pu lmonary opacities consistent with pneumonia, pneumonitis, or bronchitis. EKG showed atrial fibrillat ion with rapid ventricular response. Impression And Plan: 1.Paroxysmal atrial fibrillation exacerbated by the status of pneumonia and coronavirus disease. 2.Hypertension, poorly controlled. 3.Renal failure. Pulmonology and Nephrology consultation have been obtained. 4.Regarding his hypertension and atrial fibrillation, I think an echocardiogram should be done. I t hink we need to treat his atrial fibrillation with IV beta-blockers, p.o. beta blockers and Eliquis, which he is on. His hypertension right now should be treated with beta-blockers, which certainly cou ld add hydralazine, Norvasc, Hyzaar depending how he does and if that does not work, we will put him on nitroglycerin or Nipride drip. We will try to avoid worsening his kidney failure and we will see what Nephrology has to recommend. I am hoping that when his pneumonia improves, his atrial fibrillat ion will settle down. For now, we will aim for rate control anticoagulation. Patient's present aleksey men includes Eliquis, digoxin that was given once. Amlodipine, Lasix, hydralazine, Hyzaar, metoprolo l IV and p.o. as needed. He is also on spironolactone, steroids. Magnesium and potassium have been supplemented. We will continue to follow him. TRAY/REUBEN Voice ID: [id number] Report ID: [id number]
[2020-08-21] MEDS ORDERED: AMIODARONE HCL 900 MG in Dextrose 5%-Water 482 ML IV SCH (13:00)
--- NOTE | 2020-08-21 14:09 | PN ---
Subjective: The patient was admitted for atrial fibrillation, hypertension, COVID pneumonia, remains in atrial fibrillation but rate is controlled. He is on beta-blockers. He is on Hyzaar. He is on Norvasc. He is on hydralazine. Blood pressure is improved. His rhythm rate is controlled. Echocar diogram showed an ejection fraction of 50%, atrial fibrillation, aortic sclerosis without any stenosi s and severe pulmonary hypertension. We will continue his present regimen for now. The patient has had chronic atrial fibrillation for which he takes Eliquis at home and we will plan for rate control and not cardioversion. We will continue to follow as needed. TRAY/REUBEN Voice ID: [id number] Report ID: [id number]
--- NOTE | 2020-08-21 15:17 | P.PN ---
Subjective Date of Service: 08/21/20 Primary Care Provider: Dr. Mann, Dr. Jones Chief Complaint: Respiratory failure 75 Y/o man with PMhx of HTN , Afib on anticoagulation, CKD III Cr 1.7 in 2018 pt presented with SOB pt have URTI was on Augmentin, pt didn't improve on ABx and Pt decide to come to ER in ER pt was hypotensive with AFIB with RVR , Cr 2.2 on admission Today now on BiPAP , sat >90 cr stable Physical exam exam deferred to hospitalist due to COVID 19 pandemic GEORGE on CKD III Cr stable now renal dose meds US No hydro Low Bicarb improved Afib with RVR metoprolol and amiodarone cardiology on baord COVID 19 pneumonia cont current treatment now on BiPAP Acure resp failure due to COVID Physical Examination - Vital Signs Temperature: 98.2 F Blood Pressure: 138/84 Pulse: 96 Respirations: 36 Pulse Ox (%): 95 - Studies Medications List Reviewed: Yes
[2020-08-21] MEDS: HYDRALAZINE HCL 20 MG/ML VIAL IV PRN (16:54)
[2020-08-21] MEDS: ENOXAPARIN 100 MG/ML SYR SQ SCH (23:04)
[2020-08-22] MEDS ORDERED: METHYLPREDNISOLONE 40 MG INJ IV SCH
[2020-08-22] MEDS ORDERED: HALOPERIDOL LACT 5 MG/ML INJ IV ONE (04:21)
[2020-08-22] MEDS ORDERED: HALOPERIDOL LACT 5 MG/ML INJ ONE (04:35)
[2020-08-22 06:10] LABS: Absolute Lymphocytes (CBC) 0.3 K/uL (0.7-4.9); Basophils % 0.1 % (0-1.3); Hematocrit 40.8 % (39.6-49.0); Lymphocytes % 2.5 % (15.3-44.8); RBC Red Blood Cell Count 4.55 M/uL (4.33-5.43)
[2020-08-22 06:38] LABS: Albumin 2.7 g/dL (3.4-5.0); Magnesium 2.2 mg/dL (1.8-2.4); Phosphorus 2.6 mg/dL (2.5-4.9); Potassium 3.4 mmol/L (3.5-5.1)
[2020-08-22] MEDS: INSULIN -REGULAR HUMAN 50 UNIT/0.5 ML ML SQ SCH ×4 (07:30→20:06)
[2020-08-22] MEDS: SPIRONOLACTONE 25 MG TABLET PO SCH ×3 (09:00→20:28)
[2020-08-22] MEDS: AMLODIPINE 5 MG TAB PO SCH (09:00)
[2020-08-22] MEDS ORDERED: POTASSIUM CL SA 10 MEQ TAB PO ONE ×2 (09:00→20:25)
[2020-08-22] MEDS: VITAMIN D 1000 UNIT TAB PO SCH (09:00)
--- NOTE | 2020-08-22 09:11 | P.PN ---
Subjective Date of Service: 08/22/20 Primary Care Provider: Dr. Mann, Dr. Jones Chief Complaint: Respiratory failure Patient's condition is stable his on high-flow nasal cannula oxygen 100% CRP has increased as very alert responsive cooperative Review of Systems General: Weakness Respiratory: Shortness of Breath Physical Examination - Vital Signs Temperature: 96.6 F Blood Pressure: 172/108 Pulse: 117 Respirations: 40 Pulse Ox (%): 92 - Physical Exam General: Alert, Oriented x3, Moderate distress Respiratory: Clear to auscultation bilaterally Cardiovascular: No edema, Normal S1 S2 - Studies Medications List Reviewed: Yes Assessment & Plan - Problems (Diagnosis) (1) Respiratory failure Current Visit: Yes Status: Acute Plan: Patient has respiratory failure from bentley virus I have increased his Solu- Medrol 120 b.i.d. patient is in AFib on amiodarone drip the pressure is better controlled patient agreed redesmir/refused convalescent plasma I have discussed with the patient's son Randy sign informed in that wrist does smear is an investigational drug limited information is known about the safety and effectiveness to treat patient's with bentley virus infection the unknown medications of approved by the FDA is safe and effective to treat patient's in the hospital who of bentley virus disease discuss with the patient possible side effect include allergic reactions abnormal liver function test will be monitored and the son agrees . Renal failure is improving Qualifiers: Chronicity: acute (2) Atrial fibrillation Current Visit: Yes Status: Acute Plan: The change him over to Lovenox start IV amiodarone rate stable (3) Hypertension Current Visit: Yes Status: Acute Plan: Blood pressure is still elevated IV increase the dose of amlodipine
[2020-08-22] MEDS: METHYLPREDNISOLONE 125 MG INJ IV SCH ×2 (09:12→20:26)
[2020-08-22] MEDS: THIAMINE HCL 100 MG TABLET PO SCH (09:14)
[2020-08-22] MEDS: ASCORBIC ACID 500 MG TABLET PO SCH ×3 (09:16→20:29)
[2020-08-22] MEDS: METOPROLOL TAR 50 MG TAB PO SCH ×2 (09:16→20:29)
[2020-08-22] MEDS: LOSARTAN/HCTZ 50-12.5 PO SCH (09:23)
[2020-08-22] MEDS: AMLODIPINE 10 MG TAB PO SCH (09:27)
[2020-08-22] MEDS: HALOPERIDOL LACT 5 MG/ML INJ IV PRN ×2 (09:31→13:22)
[2020-08-22] MEDS ORDERED: LORazepam 2 MG/ML VIAL IV PRN (09:58)
--- NOTE | 2020-08-22 13:40 | P.PN ---
Subjective Date of Service: 08/22/20 Primary Care Provider: Dr. Mann, Dr. Jones Chief Complaint: Respiratory failure 75 Y/o man with PMhx of HTN , Afib on anticoagulation, CKD III Cr 1.7 in 2019 pt presented with SOB pt have URTI was on Augmentin, pt didn't improve on ABx and Pt decide to come to ER in ER pt was hypotensive with AFIB with RVR , Cr 2.2 on admission Today yesterday was on BiPAP now on high flow NC Cr stable plan to start Redmesivir Physical exam exam deferred to hospitalist due to COVID 19 pandemic GEORGE on CKD III Cr stable now renal dose meds US No hydro Low Bicarb improved Afib with RVR metoprolol and amiodarone cardiology on board COVID 19 pneumonia cont current treatment now on BiPAP Acure resp failure due to COVID Physical Examination - Vital Signs Temperature: 96.6 F Blood Pressure: 156/92 Pulse: 98 Respirations: 32 Pulse Ox (%): 91 - Studies Medications List Reviewed: Yes
[2020-08-22] MEDS: ENOXAPARIN 100 MG/ML SYR SQ SCH (16:34)
[2020-08-23] MEDS: ENOXAPARIN 100 MG/ML SYR SQ SCH ×2 (00:09→11:41)
[2020-08-23 05:32] LABS: Albumin 2.6 g/dL (3.4-5.0); Ferritin 2124.8 ng/mL (26-388); Phosphorus 2.6 mg/dL (2.5-4.9); Potassium 3.8 mmol/L (3.5-5.1)
[2020-08-23] MEDS: INSULIN -REGULAR HUMAN 50 UNIT/0.5 ML ML SQ SCH ×4 (07:30→20:28)
[2020-08-23] MEDS: SPIRONOLACTONE 25 MG TABLET PO SCH ×2 (08:03→20:27)
[2020-08-23] MEDS: LOSARTAN/HCTZ 50-12.5 PO SCH (08:03)
[2020-08-23] MEDS: METOPROLOL TAR 50 MG TAB PO SCH ×2 (08:05→20:27)
[2020-08-23] MEDS: METHYLPREDNISOLONE 125 MG INJ IV SCH ×2 (08:06→20:28)
[2020-08-23] MEDS: ASCORBIC ACID 500 MG TABLET PO SCH ×3 (08:06→20:28)
[2020-08-23] MEDS: AMLODIPINE 10 MG TAB PO SCH (08:06)
[2020-08-23] MEDS: THIAMINE HCL 100 MG TABLET PO SCH (08:06)
[2020-08-23] MEDS: VITAMIN D 1000 UNIT TAB PO SCH (08:07)
[2020-08-23] MEDS: ZINC SULFATE 220 MG CAP PO SCH (08:07)
[2020-08-23] MEDS ORDERED: POTASSIUM CL SA 10 MEQ TAB PO ONE (09:00)
--- NOTE | 2020-08-23 09:01 | ECHO ---
HEIGHT: 5 ft 10 in WEIGHT: 186 lb 12.8 oz DATE OF STUDY: 08/20/[address]: Alvaro Al NP 2-DIMENSIONAL: YES M.MODE: YES DOPPLER: YES COLOR FLOW: YES TDS: PORTABLE: DEFINITY: BUBBLE STUDY: DIAGNOSIS: ATRIAL FIBRILLATION WITH RAPID VENTRICULAR RESPONSE CARDIAC HISTORY: CATHERIZATION: SURGERY: PROSTHETIC VALVE: PACEMAKER: MEASUREMENTS (cm) DIASTOLIC (NORMALS) SYSTOLIC (NORMALS) IVSd 1.3 (0.6-1.2) LA Diam (1.9-4.0) LVEF 50% LVIDd 4.6 (3.5-5.7) LVIDs 3.4 (2.0-3.5) %FS 25% LVPWd 1.2 (0.6-1.2) Ao Diam 3.1 (2.0-3.7) 2 DIMENSIONAL ASSESSMENT: RIGHT ATRIUM: NORMAL LEFT ATRIUM: NORMAL RIGHT VENTRICLE: NORMAL LEFT VENTRICLE: NORMAL SIZE TRICUSPID VALVE: NORMAL MITRAL VALVE: NORMAL PULMONIC VALVE: NORMAL AORTIC VALVE: SCLEROSIS PERICARDIAL EFFUSION: NONE AORTIC ROOT: NORMAL LEFT VENTRICULAR WALL MOTION: MILD GLOBAL HYPOKINESIS DOPPLER/COLOR FLOW: MILD TRICUSPID REGURGITATION. RIGHT VENTRICULAR SYSTOLIC PRESSURE 55 mmHg. COMMENTS: SEVERE PULMONARY HYPERTENSION - RIGHT VENTRICULAR SYSTOLIC PRESSURE 55 mmHg. EJECTION FRACTION 50%. ATRIAL FIBRILLATION - NO THROMBUS. AORTIC SCLEROSIS. TECHNOLOGIST: DAWNA DALLAS
--- NOTE | 2020-08-23 16:49 | P.PN ---
Subjective Date of Service: 08/24/20 Primary Care Provider: Dr. Mann, Dr. Jones Chief Complaint: Respiratory failure Patient is still on high concentrations of oxygen and tolerate high-flow he is looking better today more alert responsive cooperative Review of Systems General: Weakness Respiratory: Shortness of Breath Physical Examination - Vital Signs Temperature: 98.7 F Blood Pressure: 154/92 Pulse: 101 Respirations: 31 Pulse Ox (%): 80 - Physical Exam General: Alert, Oriented x3 Respiratory: Clear to auscultation bilaterally, Diminished, Friction rub Cardiovascular: Regular rate/rhythm - Studies Medications List Reviewed: Yes Assessment And Plan - Current Problems (Diagnosis) (1) Respiratory failure Current Visit: Yes Status: Acute Plan: Patient has respiratory failure from bentley virus is steadily improving C- reactive protein has declined significantly vital signs are now stable Qualifiers: Chronicity: acute (2) Atrial fibrillation Current Visit: Yes Status: Acute Plan: T AFib is now under control creatinine is slightly worse I have reduce his Solu-Medrol to 80 mg IV b.i.d. reduce spironolactone to 25 b.i.d. now on p.o. amiodarone was change in to p.o. Eliquis Dc Lovenox (3) Hypertension Current Visit: Yes Status: Acute Plan: Blood pressure is still elevated IV increase the dose of amlodipine Physician Review Additional Text: Assessment Acute respiratory failure with hypoxia and tachypnea secondary to COVID bilateral pneumonia Atrial fibrillation with rapid ventricular response on chronic anticoagulation therapy Acute on chronic renal disease stage III Hypertension Hyperglycemia suspect underlying diabetes mellitus type 2 Hypomagnesia Elevated Bilirubin and LFTs Plan Acute respiratory failure with hypoxia and tachypnea secondary to COVID bilateral pneumonia: Continue oxygen. Patient currently on BiPAP. Will try to wean down to nasal cannula. Continue with IV steroids. Continue with supplementation. Will continue to monitor CRP and adjust medication accordingly. Patient on IV antibiotic therapy to cover for bacterial pneumonia. Pulmonology consulted. Await recommendations. Will discontinue Xarelto due to his chronic renal disease. Will change to Eliquis 5 mg 1 pill twice daily. Continue to monitor closely. Cardiology consulted to address his atrial fibrillation. Will increase metoprolol. Anticipate improvement over the next 2-3 days. Atrial fibrillation with rapid ventricular response on chronic anticoagulation therapy: Troponin slightly elevated likely related to above. Will discontinue Xarelto due to his chronic renal disease. Will change to Eliquis 5 mg 1 pill twice daily. Will increase metoprolol to 75 mg 1 pill twice daily for better rate control. Cardiology consulted to further evaluate. Patient previously on diltiazem but this was recently discontinued as an outpatient due to severe headaches. Will discuss further with cardiology. Echo ordered. Acute on chronic renal disease stage III: Nephrology consulted. Patient on IV fluids. Will monitor and adjust appropriately. Renal ultrasound ordered. Hypertension: Will increase metoprolol to 75 mg 1 pill twice daily. Patient previously on diltiazem. This was discontinued as an outpatient due to severe headaches. May need to further adjust medication. Hyperglycemia suspect underlying diabetes mellitus type 2: Will obtain A1c. Will monitor Accu-Cheks. Will provide sliding scale. Will monitor and replace. Elevated Bilirubin and LFTs: Likely related to above. Will obtain right upper quadrant abdominal ultrasound to further evaluate.
[2020-08-23] MEDS: AMIODARONE HCL 200 MG TAB PO SCH (20:27)
[2020-08-23] MEDS: HALOPERIDOL LACT 5 MG/ML INJ IV PRN (21:31)
[2020-08-24] MEDS: ENOXAPARIN 100 MG/ML SYR SQ SCH (00:06)
[2020-08-24] MEDS: MORPHINE 2 MG/ML SYR IV PRN ×2 (01:38→20:51)
[2020-08-24 05:30] LABS: Albumin 2.3 g/dL (3.4-5.0); Ferritin 1564.6 ng/mL (26-388); Phosphorus 3.6 mg/dL (2.5-4.9); Potassium 3.9 mmol/L (3.5-5.1)
[2020-08-24] MEDS: INSULIN -REGULAR HUMAN 50 UNIT/0.5 ML ML SQ SCH ×4 (07:30→20:10)
[2020-08-24] MEDS: LOSARTAN/HCTZ 50-12.5 PO SCH (08:24)
[2020-08-24] MEDS: METOPROLOL TAR 50 MG TAB PO SCH ×2 (08:24→20:20)
[2020-08-24] MEDS: METHYLPREDNISOLONE 125 MG INJ IV SCH ×2 (08:25→20:20)
[2020-08-24] MEDS: AMLODIPINE 10 MG TAB PO SCH (08:25)
[2020-08-24] MEDS: ASCORBIC ACID 500 MG TABLET PO SCH ×3 (08:25→20:20)
[2020-08-24] MEDS: ZINC SULFATE 220 MG CAP PO SCH (08:25)
[2020-08-24] MEDS: AMIODARONE HCL 200 MG TAB PO SCH ×2 (08:25→20:20)
[2020-08-24] MEDS: THIAMINE HCL 100 MG TABLET PO SCH (08:25)
[2020-08-24] MEDS: SPIRONOLACTONE 25 MG TABLET PO SCH ×2 (08:26→20:19)
[2020-08-24] MEDS: VITAMIN D 1000 UNIT TAB PO SCH (09:02)
--- NOTE | 2020-08-24 09:25 | P.PN ---
Subjective Date of Service: 08/23/20 Patient tachypneic. He is going to talk to me in full sentences. He states he is still feeling short of breath and not feeling us lot of improvement. He is on IV steroids and he did not meet criteria for Remdisivir per pharmacy. Patient did get convalescent plasma. Will continue to monitor him closely. Review of Systems 10-point ROS is otherwise unremarkable Physical Examination - Vital Signs Temperature: 98.5 F Blood Pressure: 146/89 Pulse: 102 Respirations: 24 Pulse Ox (%): 93 - Physical Exam General: Alert, In no apparent distress, Oriented x3 Respiratory: Diminished, Expiratory wheezes Cardiovascular: Regular rate/rhythm, Normal S1 S2, Systolic murmur Gastrointestinal: Normal bowel sounds, Soft and benign, Non-distended, No tenderness Musculoskeletal: No clubbing, No swelling, No tenderness Neurological: Sensation intact, Cranial nerves 3-12 intact - Studies Medications List Reviewed: Yes Assessment & Plan - Problems (Diagnosis) (1) Pneumonia due to COVID-19 virus Current Visit: Yes Status: Acute (2) Atrial fibrillation Current Visit: Yes Status: Acute (3) Hypertension Current Visit: Yes Status: Acute (4) Respiratory failure Current Visit: Yes Status: Acute Qualifiers: Chronicity: acute (5) Dehydration Onset Date: 03/21/18 Current Visit: No Status: Acute - Plan 1. Continue with IV antibiotics 2. Continue with amiodarone for rate control 3. Repeat chest x-ray is symptoms are progressively worsening 4. O2 per protocol 5. Pulmonary consultation appreciated 6. Continue with albuterol inhaler therapy; IV steroids; zinc and vitamin-C 7. O2 per protocol 8. Monitor LFTs 9. Repeat labs including D-dimer, ferritin, and CRP and LFTs 10. GI and DVT prophylaxis Discharge Plan: Home Plan to discharge in: Greater than 2 days - Advance Directives Does patient have a Living Will: Yes Does patient have a Durable POA for Healthcare: No - Code Status/Comfort Care Code Status Assessed: Yes Code Status: Full Code Critical Care: No Time Spent Managing PTS Care (In Minutes): 35
[2020-08-24] MEDS ORDERED: FUROSEMIDE 20 MG/ 2ML VIAL IV ONE (11:19)
[2020-08-24] MEDS: APIXABAN 5 MG TABLET PO SCH ×2 (12:00→20:20)
[2020-08-24] MEDS: HALOPERIDOL LACT 5 MG/ML INJ IV PRN (15:41)
--- NOTE | 2020-08-24 16:21 | PN ---
Date of Progress Note: 08/24/2020 Subjective: The patient was admitted with chronic kidney disease, COVID pneumonia. The patient had atrial fibrillation with RVR. Kidney function stays stable. The patient still has shortness of breath. Physical Examination: Vital Signs: Blood pressure 154/92, pulse of 101, afebrile. The patient had good urine output of 1100. Chest: Crackles bilateral. Heart: S1, S2. Tachy, irregular. Abdomen: Soft, nontender. Extremities: Trace edema. Neurologic: Alert. No focality. Laboratory Data: WBC 11.3, H and H 14/40.8. Sodium 135, potassium 3.9, bicarb 25, BUN 51, creatinine 2, calcium 9.3, phosphorus 3.6. Current Medications: The patient on include, 1. Amiodarone 200 b.i.d. 2. Amlodipine. 3. Hydralazine. 4. Losartan. 5. Hydrochlorothiazide. 6. Spironolactone. Assessment And Plan: 1. Chronic kidney disease, stable, slightly on the wet side. I am going to give the patient single dose of Lasix and we will continue to monitor. 2. Hypertension, controlled. We will add Lasix to establish better volume control. 3. Atrial fibrillation with rapid ventricular response. Continue amiodarone. 4. COVID pneumonia. Continue follow up with Pulmonary. Time spent coordinating the care, discuss him with all of our team members including othere senior recruitment consultant and hospitalist and [id number] with the patient and please go out of 35 min PAMELA Voice ID: [id number] Report ID: [id number] LIDIA
--- NOTE | 2020-08-24 19:15 | PN ---
Date of Progress Note: 08/23/2020 Chief Complaint: Chronic kidney disease stage 3. Baseline creatinine 1.54901, hypertension. Subjective: Patient has hypertensive heart and kidney disease. Patient was found to have elevated c reatinine up to 2.2, and acute kidney injury was due to prerenal azotemia and remains nonoliguric. Emmanuel gonzáles likely has some element of acute tubular necrosis contributory to acute kidney injury. Jeffery cannon is on Augmentin for URTI and subsequently symptoms did not improve on antibiotics and he decided to come to the emergency room, was found to have hypotension with atrial fibrillation and rapid ventric ular response. Patient on admission was found to have acute kidney injury with creatinine of 2.2. Emmanuel gonzáles remains on BiPAP and he is to start remdesivir for COVID infection. Renal ultrasound did not show hydronephrosis. He was found to have low bicarbonate level consistent with metabolic acidosis a nd subsequently this improved with high adequate hydration. Review of Systems: Unobtainable. Physical Examination: Deferred to hospitalist due to COVID-19 pandemic. Impression And Plan: 1.Acute kidney injury on chronic kidney disease. Creatinine level is stabilized and renal dose of m edication were adjusted. Ultrasound did not show hydronephrosis. Continue to monitor electrolytes a nd bicarbonate. 2.Atrial fibrillation. Patient is on metoprolol and amiodarone. Cardiology will make adjustment to treatment as needed. 3.Patient is on BiPAP and he has acute respiratory failure due to the pneumonia and he will be evalu ated by Pulmonary Service. SIMON/MODL Voice ID: [id number] Report ID: [id number]
[2020-08-24] MEDS ORDERED: APIXABAN 5 MG TABLET PO SCH (21:00)
[2020-08-25] MEDS: MORPHINE 2 MG/ML SYR IV PRN (05:01)
[2020-08-25 06:09] LABS: C-Reactive Protein 76.8 mg/L (<3.00); Ferritin 1481.3 ng/mL (26-388); Potassium 3.6 mmol/L (3.5-5.1)
[2020-08-25] MEDS: INSULIN -REGULAR HUMAN 50 UNIT/0.5 ML ML SQ SCH ×4 (07:30→20:14)
[2020-08-25] MEDS: METHYLPREDNISOLONE 125 MG INJ IV SCH ×2 (08:59→20:08)
[2020-08-25] MEDS: METOPROLOL TAR 50 MG TAB PO SCH ×2 (09:00→20:09)
[2020-08-25] MEDS: ZINC SULFATE 220 MG CAP PO SCH (09:00)
[2020-08-25] MEDS: APIXABAN 5 MG TABLET PO SCH ×2 (09:00→20:09)
[2020-08-25] MEDS: VITAMIN D 1000 UNIT TAB PO SCH (09:01)
[2020-08-25] MEDS: THIAMINE HCL 100 MG TABLET PO SCH (09:01)
[2020-08-25] MEDS: AMIODARONE HCL 200 MG TAB PO SCH ×2 (09:01→20:10)
[2020-08-25] MEDS: AMLODIPINE 10 MG TAB PO SCH (09:01)
[2020-08-25] MEDS: ASCORBIC ACID 500 MG TABLET PO SCH ×3 (09:01→21:28)
[2020-08-25] MEDS: SPIRONOLACTONE 25 MG TABLET PO SCH ×2 (09:02→20:09)
[2020-08-25] MEDS: LOSARTAN/HCTZ 50-12.5 PO SCH (09:05)
--- NOTE | 2020-08-25 10:00 | P.PN ---
Subjective Date of Service: 08/25/20 Primary Care Provider: Dr. Mann, Dr. Jones Chief Complaint: Respiratory failure 75 Y/o man with PMhx of HTN , Afib on anticoagulation, CKD III Cr 1.7 in 2019 pt presented with SOB pt have URTI was on Augmentin, pt didn't improve on ABx and Pt decide to come to ER in ER pt was hypotensive with AFIB with RVR , Cr 2.2 on admission Today Pt feels better , still on high flow O2, chest is more clear to exam with basal rales Cr slightly elevated after staring Entresto l Physical exam Physical exam general: AAOX3, NAD , obese Neck; Supple, No elevated JVD hear: RRR, normal S1,2 no murmur or rub Chest: CTAB, Basal rales B/L Abdomen: Soft , Nt Extremities No edema or ulcer GEORGE on CKD III Cr now slightly elevated after staring entresto renal dose meds US No hydro Afib with RVR metoprolol and amiodarone cardiology on board CAD on entresto COVID 19 pneumonia cont current treatment now on BiPAP Acure resp failure due to COVID Physical Examination - Vital Signs Temperature: 97.4 F Blood Pressure: 140/76 Pulse: 100 Respirations: 24 Pulse Ox (%): 87 - Studies Microbiology Data (last 24 hrs): 08/19/20 19:39 Blood - Blood Aerobic Blood Culture - Final No growth in 5 days. 08/19/20 19:39 Blood - Blood Anaerobic Blood Culture - Final No growth in 5 days. 08/19/20 19:22 Blood - Blood Aerobic Blood Culture - Final No growth in 5 days. 08/19/20 19:22 Blood - Blood Anaerobic Blood Culture - Final No growth in 5 days. Medications List Reviewed: Yes
[2020-08-25 11:53] LABS: Absolute Lymphocytes (CBC) 0.2 K/uL (0.7-4.9); Basophils % 0.3 % (0-1.3); Lymphocytes % 1.6 % (15.3-44.8); RBC Red Blood Cell Count 4.58 M/uL (4.33-5.43)
--- NOTE | 2020-08-25 12:02 | P.PN ---
Subjective Date of Service: 08/25/20 (Telephone visit) Primary Care Provider: Dr. Mann, Dr. Jones Chief Complaint: Respiratory failure Patient is doing better his FiO2 is not decrease to 45% no other complaints still in AFib on p.o. meds Physical Examination - Vital Signs Temperature: 97.4 F Blood Pressure: 137/79 Pulse: 85 Respirations: 15 Pulse Ox (%): 91 - Studies Microbiology Data (last 24 hrs): 08/19/20 19:39 Blood - Blood Aerobic Blood Culture - Final No growth in 5 days. 08/19/20 19:39 Blood - Blood Anaerobic Blood Culture - Final No growth in 5 days. 08/19/20 19:22 Blood - Blood Aerobic Blood Culture - Final No growth in 5 days. 08/19/20 19:22 Blood - Blood Anaerobic Blood Culture - Final No growth in 5 days. Medications List Reviewed: Yes Assessment & Plan - Problems (Diagnosis) (1) Respiratory failure Current Visit: Yes Status: Acute Plan: P respiratory failure from bentley virus patient is gradually improving oxygen requirements are declining CRP is mildly elevated continue with weaning renal function is mildly worse Qualifiers: Chronicity: acute (2) Atrial fibrillation Current Visit: Yes Status: Acute Plan: In AFib blood pressure is now well control no change in present therapy monitor renal function (3) Hypertension Current Visit: Yes Status: Acute Plan: Blood pressure is still elevated IV increase the dose of amlodipine Physician Review Additional Text: Assessment Acute respiratory failure with hypoxia and tachypnea secondary to COVID bilateral pneumonia Atrial fibrillation with rapid ventricular response on chronic anticoagulation therapy Acute on chronic renal disease stage III Hypertension Hyperglycemia suspect underlying diabetes mellitus type 2 Hypomagnesia Elevated Bilirubin and LFTs Plan Acute respiratory failure with hypoxia and tachypnea secondary to COVID bilateral pneumonia: Continue oxygen. Patient currently on BiPAP. Will try to wean down to nasal cannula. Continue with IV steroids. Continue with supplementation. Will continue to monitor CRP and adjust medication accordingly. Patient on IV antibiotic therapy to cover for bacterial pneumonia. Pulmonology consulted. Await recommendations. Will discontinue Xarelto due to his chronic renal disease. Will change to Eliquis 5 mg 1 pill twice daily. Continue to monitor closely. Cardiology consulted to address his atrial fibrillation. Will increase metoprolol. Anticipate improvement over the next 2-3 days. Atrial fibrillation with rapid ventricular response on chronic anticoagulation therapy: Troponin slightly elevated likely related to above. Will discontinue Xarelto due to his chronic renal disease. Will change to Eliquis 5 mg 1 pill twice daily. Will increase metoprolol to 75 mg 1 pill twice daily for better rate control. Cardiology consulted to further evaluate. Patient previously on diltiazem but this was recently discontinued as an outpatient due to severe headaches. Will discuss further with cardiology. Echo ordered. Acute on chronic renal disease stage III: Nephrology consulted. Patient on IV fluids. Will monitor and adjust appropriately. Renal ultrasound ordered. Hypertension: Will increase metoprolol to 75 mg 1 pill twice daily. Patient pr eviously on diltiazem. This was discontinued as an outpatient due to severe headaches. May need to further adjust medication. Hyperglycemia suspect underlying diabetes mellitus type 2: Will obtain A1c. Will monitor Accu-Cheks. Will provide sliding scale. Will monitor and replace. Elevated Bilirubin and LFTs: Likely related to above. Will obtain right upper quadrant abdominal ultrasound to further evaluate.
[2020-08-25 12:17] LABS: Albumin 2.2 g/dL (3.4-5.0); Bilirubin Total 1.2 mg/dL (0.2-1.0); C-Reactive Protein 75.8 mg/L (<3.00); Magnesium 2.1 mg/dL (1.8-2.4); Phosphorus 4.4 mg/dL (2.5-4.9); Potassium 3.8 mmol/L (3.5-5.1); Protein, Total 7.3 g/dL (6.4-8.2)
[2020-08-25] MEDS ORDERED: FUROSEMIDE 20 MG/ 2ML VIAL IV ONE (12:52)
[2020-08-25] MEDS ORDERED: FUROSEMIDE 20 MG/ 2ML VIAL ONE (12:58)
--- OUTSIDE RECORDS SUMMARY | 2020-08-25 17:45 | XMS REPORT | Continuity of Care Document ---
:1945 Author Organization [facility] t Address [address] [place] [address] Care Team Providers Name Role Phone Mary Grace Adan Attending Clinician Problems This patient has no known problems. Allergies, Adverse Reactions, Alerts This patient has no known allergies or adverse reactions. Medications This patient has no known medications. Procedures This patient has no known procedures. Encounters Start End Encounter Admission Attending Care Care Encounter Source Date/Time Date/Time Type Type Clinicians Facility Department ID 2019-06-18 2019-06-18 Office ARCADIO Villarreal [id number] 13:16:52 13:31:52 Visit [facility] [id number] Surgical [id number] Special [phone] [address] Results This patient has no known results.
[2020-08-25] MEDS ORDERED: ALBUTEROL 2.5 MG/3 ML NEB SOL NEB SCH (20:00)
[2020-08-25] MEDS: ENSURE ENLIVE 237 ML CAN PO SCH (20:11)
[2020-08-25] MEDS: LEVALBUTEROL 1.25 MG/3 ML NEB NEB SCH (20:15)
[2020-08-25] MEDS: IPRATROPIUM BROM 0.5MG/2.5ML NEB SCH (20:15)
[2020-08-25] MEDS: HYDROCODONE/APAP 7.5/325 MG TAB PO PRN ×2 (23:14→23:20)
[2020-08-26] MEDS: IPRATROPIUM BROM 0.5MG/2.5ML NEB SCH ×2 (01:35→08:11)
[2020-08-26] MEDS: LEVALBUTEROL 1.25 MG/3 ML NEB NEB SCH ×4 (01:35→20:20)
[2020-08-26 05:48] LABS: C-Reactive Protein 67.2 mg/L (<3.00); Ferritin 1201.3 ng/mL (26-388); Magnesium 2.3 mg/dL (1.8-2.4); Potassium 3.5 mmol/L (3.5-5.1)
[2020-08-26] MEDS: INSULIN -REGULAR HUMAN 50 UNIT/0.5 ML ML SQ SCH ×4 (07:30→21:03)
[2020-08-26] MEDS: LOSARTAN/HCTZ 50-12.5 PO SCH (09:00)
[2020-08-26] MEDS: ENSURE ENLIVE 237 ML CAN PO SCH ×2 (09:00→20:03)
--- NOTE | 2020-08-26 09:29 | P.PN ---
Subjective Date of Service: 08/24/20 Patient appears to be doing somewhat better today. His high-flow oxygen is down to 75% with flow rate of 40 liters/minute. Will slowly try to wean him down. May try to get LTAC referral as well. Review of Systems 10-point ROS is otherwise unremarkable Physical Examination - Vital Signs Temperature: 97.3 F Blood Pressure: 135/84 Pulse: 94 Respirations: 22 Pulse Ox (%): 90 - Physical Exam General: Alert, In no apparent distress, Oriented x3 Respiratory: Diminished, Crackles/rales Cardiovascular: Regular rate/rhythm, Normal S1 S2, No murmurs Gastrointestinal: Normal bowel sounds, Soft and benign, Non-distended, No tenderness Musculoskeletal: No clubbing, No tenderness, Swelling Neurological: Normal tone, Sensation intact, Cranial nerves 3-12 intact - Studies Medications List Reviewed: Yes Assessment & Plan - Problems (Diagnosis) (1) Pneumonia due to COVID-19 virus Current Visit: Yes Status: Acute (2) Atrial fibrillation Current Visit: Yes Status: Acute (3) Hypertension Current Visit: Yes Status: Acute (4) Respiratory failure Current Visit: Yes Status: Acute Qualifiers: Chronicity: acute (5) Dehydration Onset Date: 03/21/18 Current Visit: No Status: Acute - Plan 1. Continue with IV antibiotics and IV steroids 2. Continue with amiodarone for rate control; in light of patient's lung disease may try different oral medications if hypoxemia worsens 3. Repeat chest x-ray if symptoms are progressively worsening 4. O2 per protocol 5. Pulmonary consultation appreciated 6. Continue with albuterol inhaler therapy; IV steroids; zinc and vitamin-C 7. O2 per protocol 8. Monitor LFTs 9. Repeat labs including D-dimer, ferritin, and CRP and LFTs 10. GI and DVT prophylaxis Discharge Plan: Home Plan to discharge in: Greater than 2 days - Advance Directives Does patient have a Living Will: Yes Does patient have a Durable POA for Healthcare: No - Code Status/Comfort Care Code Status: Full Code Critical Care: Yes Time Spent Managing PTS Care (In Minutes): 35
--- NOTE | 2020-08-26 09:32 | P.PN ---
Subjective Date of Service: 08/25/20 Patient appears to be more hypoxic today. His clinical symptoms appear to be a little worse. We did get except as had a LTAC facility but this is on hold. I will discuss the case with Pulmonary prior to discharging to LTAC facility. Patient remains on high-flow anywhere between 75-85%. I believe the EMS does not have a high flow and they only have CPAP. Will need to make sure patient does okay on the CPAP prior to doing any kind of transportation. Review of Systems 10-point ROS is otherwise unremarkable Physical Examination - Vital Signs Temperature: 97.3 F Blood Pressure: 135/84 Pulse: 94 Respirations: 22 Pulse Ox (%): 90 - Physical Exam General: Alert, In no apparent distress, Oriented x3 Respiratory: Diminished, Expiratory wheezes, Rhonchi/gurgles Cardiovascular: Regular rate/rhythm, Normal S1 S2, Systolic murmur Gastrointestinal: Normal bowel sounds, Soft and benign, Non-distended, No tenderness Musculoskeletal: No clubbing, No tenderness, Swelling Integumentary: No rashes Neurological: Sensation intact, Cranial nerves 3-12 intact - Studies Medications List Reviewed: Yes Assessment & Plan - Problems (Diagnosis) (1) Pneumonia due to COVID-19 virus Status: Acute (2) Atrial fibrillation Status: Acute (3) Hypertension Status: Acute (4) Respiratory failure Status: Acute Qualifiers: Chronicity: acute (5) Dehydration Onset Date: 03/21/18 Status: Acute - Plan Continue with plan of care as mentioned below: 1. Continue with IV antibiotics and IV steroids 2. Continue with amiodarone; monitor oxygenation 3. Continue monitoring with repeat chest x-ray 4. O2 per protocol-currently on high-flow. Will try a CPAP mode also prepare for EMS travel 5. Pulmonary consultation appreciated 6. Continue with neb treatments at this time 7. O2 per protocol 8. Monitor LFTs as well 9. Monitor inflammatory markers including D-dimer, ferritin, and CRP and LFTs 10. GI and DVT prophylaxis Discharge Plan: LTAC Plan to discharge in: 48 Hours - Advance Directives Does patient have a Living Will: Yes Does patient have a Durable POA for Healthcare: No - Code Status/Comfort Care Code Status: Full Code Critical Care: Yes Time Spent Managing PTS Care (In Minutes): 35
[2020-08-26] MEDS: BENZONATATE 100 MG CAP PO PRN (09:50)
[2020-08-26] MEDS: METHYLPREDNISOLONE 125 MG INJ IV SCH ×2 (11:17→20:03)
[2020-08-26] MEDS: METOPROLOL TAR 50 MG TAB PO SCH ×2 (11:18→20:02)
[2020-08-26] MEDS: APIXABAN 5 MG TABLET PO SCH ×2 (11:18→20:02)
[2020-08-26] MEDS: THIAMINE HCL 100 MG TABLET PO SCH (11:19)
[2020-08-26] MEDS: AMIODARONE HCL 200 MG TAB PO SCH ×2 (11:19→20:02)
[2020-08-26] MEDS: AMLODIPINE 10 MG TAB PO SCH (11:19)
[2020-08-26] MEDS: ASCORBIC ACID 500 MG TABLET PO SCH ×3 (11:20→20:04)
[2020-08-26] MEDS: SPIRONOLACTONE 25 MG TABLET PO SCH (11:20)
[2020-08-26] MEDS: ZINC SULFATE 220 MG CAP PO SCH (11:20)
[2020-08-26] MEDS: VITAMIN D 1000 UNIT TAB PO SCH (11:21)
--- NOTE | 2020-08-26 12:04 | P.PN ---
Subjective Date of Service: 08/26/20 Primary Care Provider: Dr. Mann, Dr. Jones Chief Complaint: Respiratory failure Patient is stable still requiring high concentrations of oxygen CRP is declining Review of Systems General: Weakness Respiratory: Shortness of Breath Physical Examination - Vital Signs Temperature: 97.3 F Blood Pressure: 135/84 Pulse: 94 Respirations: 22 Pulse Ox (%): 90 - Studies Medications List Reviewed: Yes Assessment & Plan - Problems (Diagnosis) (1) Respiratory failure Current Visit: Yes Status: Acute Plan: Patient's condition is stable CRP is declining continue with present treatment he did not qualify Remdesmir/patient refuse convalescent plasma kidney function has worsened white count is now normal blood pressure control Dc spironolactone and amlodipine renal function may be worse may be prerenal Qualifiers: Chronicity: acute (2) Atrial fibrillation Current Visit: Yes Status: Acute Plan: I in AFib (3) Hypertension Current Visit: Yes Status: Acute Plan: Blood pressure is still elevated IV increase the dose of amlodipine Physician Review Additional Text: Assessment Acute respiratory failure with hypoxia and tachypnea secondary to COVID bilateral pneumonia Atrial fibrillation with rapid ventricular response on chronic anticoagulation therapy Acute on chronic renal disease stage III Hypertension Hyperglycemia suspect underlying diabetes mellitus type 2 Hypomagnesia Elevated Bilirubin and LFTs Plan Acute respiratory failure with hypoxia and tachypnea secondary to COVID bilateral pneumonia: Continue oxygen. Patient currently on BiPAP. Will try to wean down to nasal cannula. Continue with IV steroids. Continue with supplementation. Will continue to monitor CRP and adjust medication accordingly. Patient on IV antibiotic therapy to cover for bacterial pneumonia. Pulmonology consulted. Await recommendations. Will discontinue Xarelto due to his chronic renal disease. Will change to Eliquis 5 mg 1 pill twice daily. Continue to monitor closely. Cardiology consulted to address his atrial fibrillation. Will increase metoprolol. Anticipate improvement over the next 2-3 days. Atrial fibrillation with rapid ventricular response on chronic anticoagulation therapy: Troponin slightly elevated likely related to above. Will discontinue Xarelto due to his chronic renal disease. Will change to Eliquis 5 mg 1 pill twice daily. Will increase metoprolol to 75 mg 1 pill twice daily for better rate control. Cardiology consulted to further evaluate. Patient previously on diltiazem but this was recently discontinued as an outpatient due to severe headaches. Will discuss further with cardiology. Echo ordered. Acute on chronic renal disease stage III: Nephrology consulted. Patient on IV fluids. Will monitor and adjust appropriately. Renal ultrasound ordered. Hypertension: Will increase metoprolol to 75 mg 1 pill twice daily. Patient previously on diltiazem. This was discontinued as an outpatient due to severe headaches. May need to further adjust medication. Hyperglycemia suspect underlying diabetes mellitus type 2: Will obtain A1c. Will monitor Accu-Cheks. Will provide sliding scale. Will monitor and replace. Elevated Bilirubin and LFTs: Likely related to above. Will obtain right upper quadrant abdominal ultrasound to further evaluate.
[2020-08-26] MEDS: HYDROCODONE/APAP 7.5/325 MG TAB PO PRN ×2 (14:25→20:19)
--- NOTE | 2020-08-26 14:33 | RAD REPORT ---
EXAM DESCRIPTION: Lizette Single View08/26/2020 1:58 pm CLINICAL HISTORY: Chest pain COMPARISON: August 20, 2020 FINDINGS: [id number] bilateral pulmonary opacities without significant change The heart is mildly enlarged IMPRESSION: No change in mild to moderate bilateral pulmonary opacities
[2020-08-26] MEDS ORDERED: FUROSEMIDE 20 MG/ 2ML VIAL IV ONE (21:28)
--- NOTE | 2020-08-27 00:16 | PN ---
Date of Progress Note: 08/26/2020 Subjective: The patient was admitted with COVID pneumonia and acute kidney injury on chronic kidney disease. The patient is nonoliguric. Over the night, the patient is feeling okay, had worsening in kidney function. Objective: Vital Signs: Blood pressure 143/74, pulse of 90. The patient had good urine output of 1900 negative of 1 L. Chest: Faint rales on the left base. Heart: S1 and S2, systolic murmur. Abdomen: Soft, nontender. Extremities: No edema. Laboratory Data: WBC 10.8, H and H 14.1/41, and platelets 263. Sodium 135, potassium of 3.5, bicarb 26, BUN 78, creatinine 2.5, calcium 9.4, phosphorus of 4. Chest x-ray; mild congestion. Current Medications: The patient on include; 1. Eliquis. 2. Amiodarone. 3. Metoprolol 100 b.i.d. 4. Losartan and hydrochlorothiazide. 5. Zinc sulfate. 6. Solu-Medrol. 7. Hydrocodone. 8. Ergocalciferol. Assessment And Plan: 1. Acute kidney injury, secondary to cardiorenal/COVID nephropathy, slightly on the wet side. I am going to go ahead and give another dose of Lasix today and we will monitor the patient. 2. Discontinue losartan and hydrochlorothiazide. 3. Hypertension with the presence of acute kidney injury. Discontinue losartan. We will try to establish better volume control. We will give extra dose of Lasix. 4. Coronary artery disease, congestive heart failure. We will diurese. 5. COVID pneumonia, respiratory failure. Continue current treatment. We will give next dose of Lasix. Time spent coordinating the care, discuss him with all of our team members including othere industry consultant and hospitalist and [id number] with the patient and please go out of 35 min JESUS/REUBEN Voice ID: [id number] Report ID: [id number] LIDIA
[2020-08-27] MEDS: LEVALBUTEROL 1.25 MG/3 ML NEB NEB SCH ×3 (01:50→13:35)
[2020-08-27 06:07] VITALS: BMI 26.3
[2020-08-27 06:25] LABS: C-Reactive Protein 38.3 mg/L (<3.00); Ferritin 879.8 ng/mL (26-388); Magnesium 2.2 mg/dL (1.8-2.4); Potassium 4.2 mmol/L (3.5-5.1)
--- NOTE | 2020-08-27 07:53 | P.PN ---
Subjective Date of Service: 08/26/20 Patient looks to be doing a little bit better today. He is resting comfortably. Chest x-ray does not show any significant changes in pulmonary opacities. Will check with EMS and make sure they are able to transport patient prior to transfer to LTAC facility Review of Systems 10-point ROS is otherwise unremarkable Physical Examination - Vital Signs Temperature: 96.9 F Blood Pressure: 128/79 Pulse: 93 Respirations: 17 Pulse Ox (%): 96 - Physical Exam General: Alert, In no apparent distress, Oriented x3 Respiratory: Diminished, Crackles/rales Cardiovascular: Regular rate/rhythm, Normal S1 S2, Systolic murmur Gastrointestinal: Normal bowel sounds, Soft and benign, Non-distended Musculoskeletal: No clubbing, No swelling, No tenderness Neurological: Sensation intact, Cranial nerves 3-12 intact - Studies Medications List Reviewed: Yes Assessment & Plan - Problems (Diagnosis) (1) Pneumonia due to COVID-19 virus Status: Acute (2) Atrial fibrillation Status: Acute (3) Hypertension Status: Acute (4) Respiratory failure Status: Acute Qualifiers: Chronicity: acute (5) Dehydration Onset Date: 03/21/18 Status: Acute - Plan No significant changes in the plan of care. We are trying to get patient transfer to LTAC facility. We need to make sure EMS is able to transport patient without difficulty. We are checking on what his O2 requirements will be. 1. Continue with IV antibiotics and IV steroids 2. Continue with amiodarone 3. Chest x-ray with no worsening of bilateral pulmonary opacities. 4. Patient did okay with CPAP and should be able to go by EMS pending recomme ndations. Will confirm prior to transferring 5. Pulmonary consultation appreciated 6. Continue with neb treatments at this time 7. Continue with monitoring inflammatory markers including D-dimer, ferritin, and CRP and LFTs 8. GI and DVT prophylaxis Discharge Plan: LTAC Plan to discharge in: 24 Hours - Advance Directives Does patient have a Living Will: Yes Does patient have a Durable POA for Healthcare: No - Code Status/Comfort Care Code Status: Full Code Critical Care: Yes Time Spent Managing PTS Care (In Minutes): 35
[2020-08-27] MEDS: METHYLPREDNISOLONE 125 MG INJ IV SCH (08:57)
[2020-08-27] MEDS: APIXABAN 5 MG TABLET PO SCH (08:57)
[2020-08-27] MEDS: INSULIN -REGULAR HUMAN 50 UNIT/0.5 ML ML SQ SCH ×3 (08:58→16:58)
[2020-08-27] MEDS: ASCORBIC ACID 500 MG TABLET PO SCH ×2 (08:59→15:40)
[2020-08-27] MEDS: AMIODARONE HCL 200 MG TAB PO SCH (08:59)
[2020-08-27] MEDS: ZINC SULFATE 220 MG CAP PO SCH (08:59)
[2020-08-27] MEDS: VITAMIN D 1000 UNIT TAB PO SCH (08:59)
[2020-08-27] MEDS: THIAMINE HCL 100 MG TABLET PO SCH (08:59)
[2020-08-27] MEDS: ENSURE ENLIVE 237 ML CAN PO SCH (09:01)
[2020-08-27] MEDS: METOPROLOL TAR 50 MG TAB PO SCH (09:04)
--- NOTE | 2020-08-27 09:50 | P.PN ---
Subjective Date of Service: 08/27/20 Primary Care Provider: Dr. Mann, Dr. Jones Chief Complaint: Respiratory failure 75 Y/o man with PMhx of HTN , Afib on anticoagulation, CKD III Cr 1.7 in 2018 pt presented with SOB pt have URTI was on Augmentin, pt didn't improve on ABx and Pt decide to come to ER in ER pt was hypotensive with AFIB with RVR , Cr 2.2 on admission Today Pt still on high flow oxygen , at >90% on vapotherm bun and Cr slightly trending up , no need for renal replacement therapy at this time plan to discharge to LTAC Physical exam deffred to hospitalizst due to COVID 19 pandemic GEORGE on CKD III due to COVID 19 and cardiorenal syndrome Bnn/Cr slightly trending up, of entresto renal dose meds US No hydro no need for renal replacement therapy at this time Afib with RVR metoprolol and amiodarone cardiology on board CAD off entresto de to GEORGE COVID 19 pneumonia cont current treatment now on high flow NC now Acute resp failure due to COVID Physical Examination - Vital Signs Temperature: 96.9 F Blood Pressure: 120/81 Pulse: 126 Respirations: 22 Pulse Ox (%): 88 - Studies Medications List Reviewed: Yes
--- NOTE | 2020-08-27 10:23 | P.PN ---
Subjective Date of Service: 08/27/20 Primary Care Provider: Dr. Mann, Dr. Jones Chief Complaint: Respiratory failure acute renal failure Patient is subjectively better although he still requiring high concentrations of oxygen renal function is slightly worse Review of Systems General: Weakness Respiratory: Shortness of Breath Physical Examination - Vital Signs Temperature: 96.9 F Blood Pressure: 120/81 Pulse: 126 Respirations: 22 Pulse Ox (%): 88 - Physical Exam General: Alert, Oriented x3 Respiratory: Clear to auscultation bilaterally, Diminished - Studies Medications List Reviewed: Yes Assessment & Plan - Problems (Diagnosis) (1) Respiratory failure Current Visit: Yes Status: Acute Plan: Patient admitted with respiratory failure continue to wean down on oxygen CRP levels are declining continue with present doses of steroids Qualifiers: Chronicity: acute (2) Atrial fibrillation Current Visit: Yes Status: Acute Plan: The rate controlled on metoprolol and Eliquis Physician Review Additional Text: Assessment Acute respiratory failure with hypoxia and tachypnea secondary to COVID bilateral pneumonia Atrial fibrillation with rapid ventricular response on chronic anticoagulation therapy Acute on chronic renal disease stage III Hypertension Hyperglycemia suspect underlying diabetes mellitus type 2 Hypomagnesia Elevated Bilirubin and LFTs Plan Acute respiratory failure with hypoxia and tachypnea secondary to COVID bilateral pneumonia: Continue oxygen. Patient currently on BiPAP. Will try to wean down to nasal cannula. Continue with IV steroids. Continue with supplementation. Will continue to monitor CRP and adjust medication accordingly. Patient on IV antibiotic therapy to cover for bacterial pneumonia. Pulmonology consulted. Await recommendations. Will discontinue Xarelto due to his chronic renal disease. Will change to Eliquis 5 mg 1 pill twice daily. Continue to monitor closely. Cardiology consulted to address his atrial fibrillation. Will increase metoprolol. Anticipate improvement over the next 2-3 days. Atrial fibrillation with rapid ventricular response on chronic anticoagulation therapy: Troponin slightly elevated likely related to above. Will discontinue Xarelto due to his chronic renal disease. Will change to Eliquis 5 mg 1 pill twice daily. Will increase metoprolol to 75 mg 1 pill twice daily for better rate control. Cardiology consulted to further evaluate. Patient previously on diltiazem but this was recently discontinued as an outpatient due to severe headaches. Will discuss further with cardiology. Echo ordered. Acute on chronic renal disease stage III: Nephrology consulted. Patient on IV fluids. Will monitor and adjust appropriately. Renal ultrasound ordered. Hypertension: Will increase metoprolol to 75 mg 1 pill twice daily. Patient previously on diltiazem. This was discontinued as an outpatient due to severe headaches. May need to further adjust medication. Hyperglycemia suspect underlying diabetes mellitus type 2: Will obtain A1c. Will monitor Accu-Cheks. Will provide sliding scale. Will monitor and replace. Elevated Bilirubin and LFTs: Likely related to above. Will obtain right upper quadrant abdominal ultrasound to further evaluate.
[2020-08-27 19:04] VITALS: O2SAT 91
[2020-08-29 14:35] VITALS: BP 128/79; TEMP 96.9
--- NOTE | 2020-08-29 14:37 | P.DS ---
Discharge Date: 08/27/20 Primary Care Provider: Dr. Mann, Dr. Jones Disposition[facility] Discharge Condition: FAIR Reason for Admission: Respiratory failure acute renal failure - Problems (1) Pneumonia due to COVID-19 virus Status: Acute (2) Atrial fibrillation Status: Acute (3) Hypertension Status: Acute (4) Respiratory failure Status: Acute Qualifiers: Chronicity: acute (5) Dehydration Onset Date: 03/21/18 Status: Acute Brief History of Present Illness: Patient is a 75-year-old male with history of atrial fibrillation on chronic anticoagulation therapy and hypertension presents emergency department for shortness of breath. Patient reports he is diagnosed with COVID on Sunday after experiencing shortness of breath since the end of last week. Patient reports he has been on Augmentin since Sunday. Upon presentation to the emergency department patient was tachycardic around 160 in atrial fibrillation with rapid ventricular response. Patient also tachypneic with around 44 respirations per min and mildly hypoxic around 89% on room air. Chest x-ray suspicious for bilateral pleural infiltrate. ED provider wishes to admit patient for further evaluation and management. When I saw the patient in the emergency department he was awake, alert, oriented x3, patient was tachypneic around 30 respirations per min and on room air at time evaluation around 89%. Patient a for about this time. Patient is full code and does wish to be intubated if needed. Patient be admitted for further evaluation and management. Hospital Course: Patient went into atrial fibrillation and was started on amiodarone. Patient also was more hypoxic and required high-flow oxygen at 100%. We were able to wean this down. Patient also was tolerating CPAP mode. Clinically he is doing okay and at this time, he is stable for transfer to LTAC facility. Continue with IV steroids and IV antibiotics. Continue with neb treatments as needed. Hopefully, patient continues to improve on transfer to LTAC facility. Vital Signs/Physical Exam: Temp Pulse Resp BP Pulse Ox 96.9 F 93 H 17 128/79 96 08/29/20 14:34 08/29/20 14:34 08/29/20 14:34 08/29/20 14:34 08/29/20 14:34 General: Alert, In no apparent distress, Oriented x3 Laboratory Data at Discharge: WBC 10.8 K/uL (4.3-10.9) 08/25/20 11:28 Hgb 14.1 g/dL (13.6-17.9) 08/25/20 11:28 Hct 41.0 % (39.6-49.0) 08/25/20 11:28 Plt Count 263 K/uL (152-406) D 08/25/20 11:28 PT 23.9 SECONDS (9.5-12.5) H 08/19/20 19:20 INR 2.05 08/19/20 19:20 Sodium 135 mmol/L (136-145) L 08/27/20 06:00 Potassium 4.2 mmol/L (3.5-5.1) 08/27/20 06:00 BUN 85 mg/dL (7-18) H 08/27/20 06:00 Creatinine 2.58 mg/dL (0.55-1.3) H 08/27/20 06:00 Glucose 213 mg/dL (74-106) H 08/27/20 06:00 Uric Acid 7.3 mg/dL (3.5-7.2) H 08/20/20 05:05 Phosphorus 4.0 mg/dL (2.5-4.9) 08/26/20 05:06 Magnesium 2.2 mg/dL (1.8-2.4) 08/27/20 06:00 Total Bilirubin 1.2 mg/dL (0.2-1.0) H 08/25/20 11:28 AST 37 U/L (15-37) 08/25/20 11:28 ALT 75 U/L (12-78) 08/25/20 11:28 Alkaline Phosphatase 123 U/L (45-117) H 08/25/20 11:28 Home Medications: Cyclobenzaprine [Flexeril*] 10 mg PO DAILY 03/20/18 Omeprazole 20 mg PO DAILY 03/20/18 Amiodarone HCl [Cordarone*] 200 mg PO BID #60 tab 08/27/20 Apixaban [Eliquis] 5 mg PO BID #60 tablet 08/27/20 Ascorbic Acid [Vitamin C*] 500 mg PO TID #90 tablet 08/27/20 Benzonatate [Tessalon Perle*] 100 mg PO TID PRN #30 cap 08/27/20 Cholecalciferol (Vitamin D3) [Vitamin D 1000 Iu Tab*] 2,000 unit PO DAILY #60 tab 08/27/20 Ensure Enlive 237 ml PO BID #60 can 08/27/20 Hydrocodone 7.5/APAP 325 [[place] 7.5/325 mg*] 1 tab PO Q6H PRN #30 tab 08/27/20 Methylprednisolone Sod Succ/Pf [Solu-Medrol 125 mg Vial] 80 mg IV Q12H #8 ml 08/27/20 Metoprolol Tartrate [Lopressor*] 100 mg PO BID #60 tab 08/27/20 Thiamine HCl [Vitamin B-1*] 100 mg PO DAILY #30 tablet 08/27/20 Zinc Sulfate [Zinc Sulfate*] 220 mg PO DAILY #30 cap 08/27/20 New Medications: Amiodarone HCl [Cordarone*] 200 mg PO BID #60 tab Apixaban [Eliquis] 5 mg PO BID #60 tablet Ensure Enlive 237 ml PO BID #60 can Metoprolol Tartrate [Lopressor*] 100 mg PO BID #60 tab Hydrocodone 7.5/APAP 325 [[place] 7.5/325 mg*] 1 tab PO Q6H PRN #30 tab PRN Reason: Pain Scale 5-7 (Moderate) Methylprednisolone Sod Succ/Pf [Solu-Medrol 125 mg Vial] 80 mg IV Q12H #8 ml Benzonatate [Tessalon Perle*] 100 mg PO TID PRN #30 cap PRN Reason: Cough Thiamine HCl [Vitamin B-1*] 100 mg PO DAILY #30 tablet Ascorbic Acid [Vitamin C*] 500 mg PO TID #90 tablet Cholecalciferol (Vitamin D3) [Vitamin D 1000 Iu Tab*] 2,000 unit PO DAILY #60 tab Zinc Sulfate [Zinc Sulfate*] 220 mg PO DAILY #30 cap Patient Discharge Instructions: Okay to Dc the LTAC once confirmation that EMS is safely able to transport patient on the oxygen requirements Diet: AHA Activity: Fall precautions Time spent managing pt's care (in minutes): 35
== END 2020-08-27 17:45 | DRG 871 ==
LOC: ER 17:32 → ERHOLD 21:52 → 3RD-ICU 08-20 07:24
PROVIDERS: ADMIT Family Medicine; ATTEND Hospitalist
PROC: 5A09557 Assistance with Respiratory Ventilation, Greater than 96 Consecutive Hours, Continuous Positive Airway Pressure (ICD-10-PCS; principal; 2020-08-20)
DX: A41.89 Other specified sepsis (principal); U07.1 COVID-19; J12.89 Other viral pneumonia; J96.01 Acute respiratory failure with hypoxia; E44.1 Mild protein-calorie malnutrition; N17.9 Acute kidney failure, unspecified; I12.9 Hypertensive chronic kidney disease with stage 1 through stage 4 chronic kidney disease, or unspecified chronic kidney disease; N18.30 Chronic kidney disease, stage 3 unspecified; I48.0 Paroxysmal atrial fibrillation; E86.0 Dehydration; E83.42 Hypomagnesemia; E80.7 Disorder of bilirubin metabolism, unspecified; R73.9 Hyperglycemia, unspecified; Z68.26 Body mass index [BMI] 26.0-26.9, adult; Z79.01 Long term (current) use of anticoagulants; Z90.49 Acquired absence of other specified parts of digestive tract; Z79.899 Other long term (current) drug therapy
CPT/HCPCS: 36415; 71045; 76705; 76770; 80048; 80053; 80069; 80076; 82550; 82570; 82728; 82805; 82947; 83036; 83605; 83615; 83735; 83880; 83970; 84100; 84132; 84145; 84156; 84439; 84443; 84484; 84550; 85025; 85379; 85384; 85610; 86140; 87040; 93005; 93306; 94002; 94003; 94010; 94640; 94660; 94760; 99285; J0282; J0360; J0456; J0696; J1100; J1160; J1630; J1650; J1940; J2270; J2920; J2930; J3475; J3486; J7030; J7040; J7050; J7060